=== PATIENT | female | born 1960 | race American Indian/Alaskan Native ===

== ENCOUNTER 2017-05-12 19:06 | Observation (INO) | payer MEDICARE, OTHER ==
[2017-05-12 19:12] VITALS: BMI 50.1
[2017-05-12] MEDS ORDERED: Albuterol-Ipratrop 3 mg / 0.5 (3 ml) UD IH STA ×2 (19:35→21:05)
--- NOTE | 2017-05-12 19:35 | ED PDOC ---
Arrival/HPI - General Chief Complaint: Cough, Cold, Congestion Time Seen by Provider: 05/12/17 19:20 Historian: Patient - History of Present Illness Narrative History of Present Illness (Text): 05/12/17 19:35 A 57 year old female, whose past medical history includes COPD, diabetes and hypertension, presents to the emergency department complaining of 6 days history of productive cough with green sputum. Patient also reports shortness of breath, fever and chills. Denies any chest pain, abdominal pain, nausea, vomiting, diarrhea or any other complaints at this time. Time/Duration: Other (6 days) Symptom Onset: Sudden Symptom Course: Unchanged Activities at Onset: Rest Context: Home Past Medical History - Provider Review Nursing Documentation Reviewed: Yes - Infectious Disease Hx of Infectious Diseases: None - Reproductive Menopause: Yes - Cardiac Hx Hypertension: Yes Hx Pacemaker: No - Pulmonary Hx Bronchitis: Yes Hx Chronic Obstructive Pulmonary Disease (COPD): Yes - Neurological Hx Paralysis: No - Endocrine/Metabolic Hx Diabetes Mellitus Type 2: Yes - Hematological/Oncological Hx Blood Transfusions: No Hx Blood Transfusion Reaction: No - Musculoskeletal/Rheumatological Hx Musculoskeletal Disorders: Yes - Psychiatric Hx Substance Use: No - Surgical History Other/Comment: lap band 2014 - Anesthesia Hx Anesthesia Reactions: Yes ("I GET VERY ANXIOUS BEFORE I GO UNDER & NEED TO SIT UP'") Hx Malignant Hyperthermia: No - Suicidal Assessment Feels Threatened In Home Enviroment: No Family/Social History - Physician Review Nursing Documentation Reviewed: Yes Family/Social History: No Known Family HX Smoking Status: Former Smoker Hx Alcohol Use: No Hx Substance Use: No Allergies/Home Meds Allergies/Adverse Reactions: Allergies No Known Allergies Allergy (Verified 01/20/16 10:44) Home Medications: Home Meds Medication Instructions Recorded Confirmed Losartan/Hydrochlorothiazide 1 tab PO DAILY 01/20/16 05/12/17 [Losartan-Hctz 100-25 mg Tab] amLODIPine [Norvasc] 10 mg PO DAILY 01/20/16 05/12/17 metFORMIN [glucOPHAGE] 500 mg PO BID 01/20/16 05/12/17 Gabapentin [Neurontin] 400 mg PO TID 01/25/16 05/12/17 Review of Systems - Physician Review All systems were reviewed & negative as marked: Yes - Review of Systems Constitutional: Fevers, Other (chills) Respiratory: SOB, Cough Cardiovascular: absent: Chest Pain Gastrointestinal: absent: Abdominal Pain, Diarrhea, Nausea, Vomiting Physical Exam Vital Signs Reviewed: Yes Vital Signs Temp Pulse Resp BP Pulse Ox 05/12/17 23:32 73 18 126/78 92 L 05/12/17 19:07 98.5 F 83 20 117/81 92 L Temperature: Afebrile Blood Pressure: Normal Pulse: Regular Respiratory Rate: Normal Appearance: Positive for: Non-Toxic, Comfortable, Other (obese) Pain Distress: None Mental Status: Positive for: Alert and Oriented X 3 - Systems Exam Head: Present: Atraumatic, Normocephalic Pupils: Present: PERRL Extroacular Muscles: Present: EOMI Conjunctiva: Present: Normal Mouth: Present: Moist Mucous Membranes Neck: Present: Normal Range of Motion Respiratory/Chest: Present: Rhonchi (bilateral). No: Respiratory Distress, Accessory Muscle Use Cardiovascular: Present: Regular Rate and Rhythm, Normal S1, S2. No: Murmurs Abdomen: Present: Normal Bowel Sounds. No: Tenderness, Distention, Peritoneal Signs Back: Present: Normal Inspection Upper Extremity: Present: Normal Inspection. No: Cyanosis, Edema Lower Extremity: Present: Normal Inspection. No: Edema Neurological: Present: GCS=15, CN II-XII Intact, Speech Normal Skin: Present: Warm, Dry, Normal Color. No: Rashes Psychiatric: Present: Alert, Oriented x 3, Normal Insight, Normal Concentration Medical Decision Making ED Course and Treatment: 05/12/17 19:34 Impression: A 57 year old female with cough, shortness of breath, fever and chills. Differential Diagnosis included but are not limited to: pneumonia vs. bronchitis vs. COPD exacerbation Plan: -- EKG -- chest xray -- labs -- Reassess and disposition Progress Notes: 05/12/17 19:52 EKG: Ordered, reviewed, and independently interpreted the EKG. Rate : 77 BPM Rhythm : NSR Interpretation : normal intervals, normal axis XR Chest, 1 View FINDINGS: LIMITATIONS: Exam is limited by the patient's body habitus. LUNGS: Hazy density projected over the lower lungs bilaterally, which is symmetric in appearance, and is felt to be related to overlying soft tissues. Lungs otherwise appear grossly clear, without definite focal consolidation or evidence of pulmonary edema. PLEURAL SPACE: No pneumothorax or pleural effusions seen. HEART: Heart appears mildly enlarged. MEDIASTINUM: 2.2 cm round density with well-defined margins in the right cardiophrenic angle region. BONES/JOINTS: Degenerative changes of the spine incidentally noted. IMPRESSION: - Mild cardiomegaly. - 2.2 cm round density in the right cardiophrenic angle region. This could represent a prominent epicardial fat (a normal variant), or a small cardiophrenic angle mass , such as a pericardial cyst. This finding could be further evaluated with a followup CT chest, not necessarily on an emergent basis. - See above for remaining findings. Dictated and Authenticated by: Alessandra Verdugo MD 05/12/2017 9:11 PM Eastern Time ([place] & [place]) 05/12/17 23:[address] Bernal, who is aware and agrees with plan. Accepts pt in to his service. Pt will go to Telemetry observation for COPD exacerbation. Requests Dr. Mcfarlane and Dr. Gordon on consult. - Lab Interpretations Lab Results: 05/12/17 19:50 05/12/17 20:50 Lab Results 05/12/17 20:50: Sodium 141, Potassium 3.8, Chloride 99, Carbon Dioxide 35 H, Anion Gap 11, BUN 21, Creatinine 0.8, Est GFR ( Amer) > 60, Est GFR (Non- Af Amer) > 60, Random Glucose 109, Calcium 9.5, Total Bilirubin 0.7, AST 60 H, ALT 73 H, Alkaline Phosphatase 155 H, Lactate Dehydrogenase 637, Total Creatine Kinase 218, Troponin I < 0.01, NT-Pro-B Natriuret Pep 41.8, Total Protein 8.8 H , Albumin 4.3, Globulin 4.5, Albumin/Globulin Ratio 1.0 L 05/12/17 19:50: WBC 7.3, RBC 3.91, Hgb 11.8 L, Hct 37.4, MCV 95.7, MCH 30.2, MCHC 31.6, RDW 14.2, Plt Count 474 H, MPV 9.5 05/12/17 19:50: PT 11.1, INR 1.02, APTT 31.3 I have reviewed the lab results: Yes - RAD Interpretation Radiology Orders: 05/12/17 19:31 CHEST PORTABLE [RAD] Stat Arbitrator: Radiologist - EKG Interpretation Interpreted by ED Physician: Yes Type: 12 lead EKG - Medication Orders Current Medication Orders: Albuterol/Ipratropium (Duoneb 3 Mg/0.5 Mg (3 Ml) Ud) 3 ml IH Q4H PRN PRN Reason: Shortness of Breath Last Admin: 05/13/17 03:30 Dose: 3 ml Discontinued Medications Albuterol/Ipratropium (Duoneb 3 Mg/0.5 Mg (3 Ml) Ud) 3 ml IH ONCE STA Stop: 05/12/17 19:36 Last Admin: 05/12/17 20:27 Dose: 3 ml Albuterol/Ipratropium (Duoneb 3 Mg/0.5 Mg (3 Ml) Ud) 3 ml IH ONCE STA Stop: 05/12/17 21:06 Last Admin: 05/12/17 22:24 Dose: 3 ml Ceftriaxone Sodium (Rocephin 1 Gram Ivpb) 1 gm in 100 mls @ 200 mls/hr IV ONCE STA PRN Reason: Protocol Stop: 05/12/17 21:59 Last Admin: 05/12/17 22:24 Dose: 200 mls/hr eMAR Start Stop Document 05/12/17 22:24 EQ (Rec: 05/12/17 22:24 EQ [id number]) Intravenous Solution Start Date 05/12/17 Start Time 22:24 Azithromycin (Zithromax 500mg In Ns) 500 mg in 250 mls @ 166.667 mls/hr IV STAT STA PRN Reason: Protocol Stop: 05/12/17 22:59 Last Admin: 05/12/17 23:30 Dose: 166.667 mls/hr eMAR Start Stop Document 05/12/17 23:30 EQ (Rec: 05/12/17 23:30 EQ [id number]) Intravenous Solution Start Date 05/12/17 Start Time 23:30 Methylprednisolone (Solu-Medrol) 125 mg IVP ONCE ONE Stop: 05/12/17 19:36 Last Admin: 05/12/17 20:27 Dose: 125 mg IVP Administration Document 05/12/17 20:27 EQ (Rec: 05/12/17 20:27 EQ [id number]) Charges for Administration # of IVP Administrations 1 - Scribe Statement The provider has reviewed the documentation as recorded by the Scribe Belqes Richard Provider Scribe Attestation: All medical record entries made by the Scribe were at my direction and personally dictated by me. I have reviewed the chart and agree that the record accurately reflects my personal performance of the history, physical exam, medical decision making, and the department course for this patient. I have also personally directed, reviewed, and agree with the discharge instructions and disposition. Disposition/Present on Arrival - Present on Arrival Any Indicators Present on Arrival: No History of DVT/PE: No History of Uncontrolled Diabetes: Yes Urinary Catheter: No History of Decub. Ulcer: No History Surgical Site Infection Following: None - Disposition Have Diagnosis and Disposition been Completed?: Yes Diagnosis: COPD exacerbation Disposition: HOSPITALIZED Disposition Time: 22:39 Patient Plan: Observation Patient Problems: Current Active Problems Problem Status Onset COPD exacerbation Acute Condition: STABLE
[2017-05-12 20:15] LABS: HEMATOCRIT 37.4 % (36.0-48.0); MEAN CELL VOLUME 95.7 fl (80.0-105.0); MEAN CORPUSCULAR HEMOGLOBIN 30.2 pg (25.0-35.0); MEAN CORPUSCULAR HGB CONC 31.6 g/dl (31.0-37.0); MEAN PLATELET VOLUME 9.5 fl (7.0-11.0); RED CELL DISTRIBUTION WIDTH 14.2 % (11.5-14.5); WHITE BLOOD COUNT 7.3 10^3/ul (4.5-11.0)
[2017-05-12 20:33] LABS: INR 1.02 (0.93-1.08); PARTIAL THROMBOPLASTIN TIME 31.3 Seconds (25.1-36.5)
--- NOTE | 2017-05-12 21:12 | RAD ---
EXAM: XR Chest, 1 View EXAM DATE/TIME: 05/12/2017 7:31 PM CLINICAL HISTORY: 57 years old, female; Signs and symptoms; Cough and shortness of breath; Symptoms not specified; Additional info: SOB TECHNIQUE: Frontal view of the chest. COMPARISON: No relevant prior studies available. FINDINGS: LIMITATIONS: Exam is limited by the patient's body habitus. LUNGS: Hazy density projected over the lower lungs bilaterally, which is symmetric in appearance, and is felt to be related to overlying soft tissues. Lungs otherwise appear grossly clear, without definite focal consolidation or evidence of pulmonary edema. PLEURAL SPACE: No pneumothorax or pleural effusions seen. HEART: Heart appears mildly enlarged. MEDIASTINUM: 2.2 cm round density with well-defined margins in the right cardiophrenic angle region. BONES/JOINTS: Degenerative changes of the spine incidentally noted. IMPRESSION: - Mild cardiomegaly. - 2.2 cm round density in the right cardiophrenic angle region. This could represent a prominent epicardial fat (a normal variant), or a small cardiophrenic angle mass, such as a pericardial cyst. This finding could be further evaluated with a followup CT chest, not necessarily on an emergent basis. - See above for remaining findings.
[2017-05-12] MEDS ORDERED: Azithromycin 500MG/NS 250ml 500 MG/250 ML BAG IV STA (21:30)
[2017-05-12] MEDS ORDERED: cefTRIAXone 1 gm 1 GM/100 ML BAG IV STA (21:30)
[2017-05-12 22:26] LABS: POTASSIUM 3.8 mmol/L (3.6-5.0); SODIUM 141 mmol/L (132-148)
[2017-05-12 22:27] LABS: ALKALINE PHOSPHATASE 155 U/L (38-126); ALT/SGPT 73 U/L (7-56); AST/SGOT 60 U/L (14-36); BILIRUBIN,TOTAL 0.7 mg/dL (0.2-1.3); CALCIUM 9.5 mg/dL (8.4-10.5); TOTAL PROTEIN 8.8 g/dL (5.8-8.3)
[2017-05-12 22:28] LABS: TROPONIN I < 0.01 ng/mL
[2017-05-12] MEDS ORDERED: Albuterol-Ipratrop 3 mg / 0.5 (3 ml) UD IH PRN (22:41)
[2017-05-13 00:02] VITALS: RESP 20
[2017-05-13 01:23] LABS: BLOOD UREA NITROGEN 21 mg/dL (7-21); CARBON DIOXIDE 35 mmol/L (21-33); CHLORIDE 99 mmol/L (98-107); GFR AFRICAN-AMERICAN > 60; GLUCOSE,RANDOM 109 mg/dL (70-110)
--- NOTE | 2017-05-13 02:39 | CP.PCM.PN ---
Subjective - Date & Time of Evaluation Date of Evaluation: 05/13/17 Time of Evaluation: 02:38 - Subjective Subjective: S:Patient requested to be on CPAP.. States she is on CPAP at home for obstructive sleep apnea. Does not know exact setting. Has no other complaints. Medical record was reviewed. O: Last Vital Signs 3 Temp 98.2 F 05/13/17 00:00 Pulse 91 H 05/13/17 02:00 Resp 20 05/13/17 00:00 BP 112/69 05/13/17 00:00 Pulse Ox 98 05/13/17 00:00 Alert, awake. Obese. Not in distress. LUNGS: Normal breathing pattern. A:CA. Obesity. P: CPAP as per order for tonight. Objective - Vital Signs/Intake and Output Vital Signs (last 24 hours): Temp Pulse Resp BP Pulse Ox 98.5 F 73 20 126/78 92 L 05/12/17 19:07 05/12/17 23:32 05/12/17 23:49 05/12/17 23:32 05/12/17 23:32 - Medications Medications: Current Medications Albuterol/Ipratropium (Duoneb 3 Mg/0.5 Mg (3 Ml) Ud) 3 ml IH Q4H PRN PRN Reason: Shortness of Breath - Labs Labs: PT 11.1 SECONDS (9.4-12.5) 05/12/17 19:50 INR 1.02 (0.93-1.08) 05/12/17 19:50 APTT 31.3 Seconds (25.1-36.5) 05/12/17 19:50
[2017-05-13] MEDS ORDERED: Albuterol-Ipratrop 3 mg / 0.5 (3 ml) UD IH PRN (07:06)
[2017-05-13] MEDS: Budesonide 0.5 mg/2 ml Inhal Susp UD IH SCH ×2 (07:57→19:29)
[2017-05-13] MEDS: Albuterol-Ipratrop 3 mg / 0.5 (3 ml) UD IH SCH ×4 (07:57→19:29)
[2017-05-13] MEDS ORDERED: Non Formulary Medication (Losartan/Hydrochlorothiazide [Losartan-Hctz 100-25 Mg Tab] 1 TAB PO SCH (10:00)
--- NOTE | 2017-05-13 11:03 | RAD ---
HISTORY: follow up COMPARISON: Comparison is made to 05/12/2017 TECHNIQUE: Chest PA and lateral FINDINGS: LUNGS: No significant interval change in the lungs noted since the previous exam. No evidence of focal infiltrate or consolidation in the lungs. Possible mild pulmonary vascular congestion. PLEURA: No significant pleural effusion identified. No pneumothorax apparent. CARDIOVASCULAR: The cardiac silhouette is mildly enlarged. OSSEOUS STRUCTURES: No significant abnormalities. VISUALIZED UPPER ABDOMEN: Normal. OTHER FINDINGS: None. IMPRESSION: Mild cardiomegaly. Mild pulmonary vascular congestion.
--- NOTE | 2017-05-13 11:16 | CT ---
PROCEDURE: CT Chest without contrast HISTORY: mass COMPARISON: Chest radiograph 05/12/2017. TECHNIQUE: Contiguous axial images were obtained through the chest without intravenous contrast enhancement. Sagittal and coronal reconstructions were performed. Radiation dose (DLP): 1286.02 mGy-cm. This CT exam was performed using one or more of the following dose reduction techniques: Automated exposure control, adjustment of the mA and/or kV according to patient size, and/or use of iterative reconstruction technique. FINDINGS: LUNGS: Mild bullous changes are identified in the bilateral apices and minimal at the inferior lungs bilaterally as well. No infiltrate is identified in the central airways are clear. MEDIASTINUM: The medial, bilobed right epicardial density seen the prior chest radiograph 05/12/2017 there is represented by a 2.2 x 4.8 cm mildly complex cyst measuring of variable Hounsfield unit density as low was -12.2 and as high as 0.4. This may represent a benign epicardial/ pericardial cyst, but is nonspecific appearing particularly without contrast. No significant lymphadenopathy. Cardiomegaly appears mild. No pericardial effusion. The thoracic aorta measures 4.0 cm at the proximal ascending segment and only 2.8 cm at the root representing a mild aneurysm of the arch terminating at the anterior arch which measures 3.[address] or caliber persists through the descending segment and diaphragmatic hiatus. Patient is status post lap band procedure. BONES: No fracture. No destructive lesion. UPPER ABDOMEN: Patient is status post lap band procedure. Cholelithiasis also partially captured in this exam. OTHER FINDINGS: None. IMPRESSION: 1. A 4.8 cm complex cysts identified at the right epicardial region there is likely benign. Given complexity, follow-up chest CT is advised in 3 months to demonstrate stability of this finding. 2. Limited pulmonary emphysema bilaterally. No definitive pulmonary mass. No significant lymphadenopathy. No acute pulmonary findings. 3. A mild ascending thoracic aortic aneurysm terminates proximal to the anterior arch measuring 4.0 cm greatest dimension with normal caliber aortic root. 4. Incidental prior lap band procedure. Cholelithiasis partially captured in this exam.
[2017-05-13] MEDS: MethylPREDNISolone 40 mg Vial IVP SCH ×2 (12:08→22:55)
[2017-05-13] MEDS: levoFLOXacin 500 MG TAB PO SCH (12:08)
--- NOTE | 2017-05-13 15:11 | CON ---
DATE: 05/13/2017 REQUESTING PHYSICIAN: Manjeet Bernal DO REASON FOR CONSULTATION: I have been asked to see this 57-year-old female with a history of COPD, morbid obesity, hypertension, and diabetes mellitus, who comes to the hospital with 6 days of cough with greenish sputum, associated with some shortness of breath. The patient also experienced fevers and chills. Routine blood work shows elevated liver enzymes for which I have been asked to see this patient. The patient currently denies any abdominal pain, nausea, vomiting, hematemesis or rectal bleeding. PAST MEDICAL HISTORY: Notable for COPD, hypertension, diabetes mellitus, and morbid obesity. PAST SURGICAL HISTORY: Notable for lap band placement in 2013. SOCIAL HISTORY: The patient quit cigarette smoking several years ago. She denies alcohol use. FAMILY HISTORY: Noncontributory. REVIEW OF SYSTEMS: A 14-point review of systems is notable for shortness of breath and cough, productive of greenish sputum. PHYSICAL EXAMINATION: GENERAL: Obese female lying in bed in no acute distress. VITAL SIGNS: The patient weighs 284 pounds with BMI of 50.1. Vital signs reveal temperature of 97.9, blood pressure of 118/71, and heart rate of 85. HEENT: Reveal sclerae to be white. Conjunctivae pink. NECK: Supple. CHEST: Reveal scattered rhonchi. HEART: Exam reveals regular rate and rhythm. ABDOMEN: Obese and soft. She has a palpable lap band port in the right mid abdomen. EXTREMITIES: Show no edema. LABORATORY DATA: Reveal white blood cell count of 7.3 and hemoglobin of 11.8. Chemistries reveal bicarb of 35, AST of 60, ALT of 73, and alkaline phosphatase of 155. HOME MEDICATIONS: Include metformin, Norvasc, losartan,and gabapentin. CURRENT MEDICATIONS: Include losartan, albuterol, ipratropium, metformin, hydrochlorothiazide, Levaquin, gabapentin, Norvasc, budesonide, and methylprednisolone. IMPRESSION: A 57-year-old female admitted to the hospital with shortness of breath and cough, productive of greenish sputum. CT scan of the chest shows chronic obstructive pulmonary disease and a right pericardial complex cyst. This appears to be chronic. Her elevated liver enzymes are most likely secondary to fatty liver. The patient is morbidly obese. RECOMMENDATIONS: 1. Check hepatitis serology. 2. Follow liver enzymes. 3. We will request ultrasound of the abdomen. Deandre Troy MD
--- NOTE | 2017-05-13 15:29 | US ---
HISTORY: elevated LFT's COMPARISON: None. TECHNIQUE: Sonographic evaluation of the right upper quadrant of the abdomen. FINDINGS: LIVER: Measures 16.2 cm in length. Normal echogenicity of the liver parenchyma. No mass. No intrahepatic bile duct dilatation. GALLBLADDER: Gallbladder is low partially contracted with cholelithiasis at the mid to distal fundus. No pericholecystic fluid collection or gross mural thickening appreciated. Normal caliber CBD. COMMON BILE DUCT: Measures 5.4 mm. No stones. No dilatation. PANCREAS: Unremarkable as visualized. No mass. No ductal dilatation. RIGHT KIDNEY: Measures 10.2 cm in length. Normal echogenicity. No calculus, mass, or hydronephrosis. Views of the left kidney are incidentally unremarkable. AORTA: No aneurysmal dilatation. IVC: Unremarkable. OTHER FINDINGS: None . IMPRESSION: 1. No definitive hepatic mass or prominent biliary tree dilatation is appreciable. 2. Cholelithiasis within a partially contracted gallbladder. Normal caliber CBD. 3. Remainder of the examination appears unremarkable grossly.
--- NOTE | 2017-05-13 15:44 | CON ---
PULMONARY CONSULTATION DATE: 05/13/2017 REFERRING PHYSICIAN: Manjeet Bernal DO REASON FOR CONSULTATION: Chronic obstructive pulmonary disease. HISTORY OF PRESENT ILLNESS: The patient is a 57-year-old female, with past medical history significant for chronic obstructive pulmonary disease, obstructive sleep apnea, diabetes mellitus, hypertension, who presents to [facility] with a 6-day history of worsening shortness of breath at rest, dyspnea on exertion, cough, and sputum production. There is no history of chest pain, coughing up of blood, or chest pain - made worse with deep respirations. There is no history of temperatures, chills or infectious exposure. There is no history of night sweats, weight loss or appetite change prior to the above events. No history of leg or calf pains. No history of syncope or diaphoresis. No history of recent travel or trauma. REVIEW OF SYSTEMS: No history of nausea, vomiting or diarrhea. No acute urinary symptoms. No new neurologic or musculoskeletal complaints. Rest of the review of systems is negative. ALLERGIES: NO KNOWN ALLERGIES. SOCIAL HISTORY: History is positive for tobacco and negative for alcohol. FAMILY HISTORY: No inheritable diseases. HOME MEDICATION: Listed: Glucophage, Norvasc, losartan - hydrochlorothiazide and Neurontin. PHYSICAL EXAMINATION GENERAL: The patient is not short of breath at rest. She is not using accessory muscles for breathing. VITAL SIGNS: Temperature is 97.9, pulse 87, respirations 18/20, blood pressure 118/71. Oxygen saturation on BiPAP is 100%. Oxygen saturation on nasal cannula is 98%. HEENT: Normocephalic, atraumatic. No JVD. CARDIOVASCULAR: Positive S1, S2. No S3 gallop. LUNGS: Decreased breath sounds at the bases. Mild rhonchi and wheezing are heard bilaterally. EXTREMITIES: Mild edema. No cyanosis, no clubbing. Calves are nontender to palpation. GI: Abdomen is soft, nontender and nondistended. Bowel sounds are positive. SKIN: No acute rash. NEUROLOGIC: Exam limited at the present time. PERTINENT LABORATORY DATA: Chest x-ray was done as a portable exam. There is a rounded density in the right cardiophrenic angle consistent with either a prominent epicardial fat pad or possibly a pericardial cyst. CBC: White count 7.3, hemoglobin 11.8, hematocrit 37.4, platelets of 474. Complete metabolic profile: Carbon dioxide 35, AST 60, ALT 73, alkaline phosphatase 155, total protein 8.8. Rest of the metabolic profile is within normal limits. IMPRESSION: 1. Acute bronchitis. 2. Chronic obstructive pulmonary disease. 3. Obstructive sleep apnea. 4. Mild anemia. PLAN: The patient presents to [facility] with a 6-day history of worsening pulmonary symptoms. The patient is followed closely by a private Health Care Attorney - Dr. Foster. She does follow with him frequently. I did review the chest x-ray as above. There is a small rounded density in the right cardiophrenic angle - either representing a prominent pericardial fat pad or possibly a pericardial cyst. I will proceed with a two-view chest x-ray - for better delineation. On physical exam, the patient is in [id number] bronchospasm. I will start the patient on nebulizer treatments, inhaled Pulmicort and low-dose intravenous steroids this morning. Given her above age and history, I will also start the patient on oral antibiotic therapy. There are no temperatures noted. There is no leukocytosis. In addition, there is no significant alveolar-arterial gradient. The patient does feel much better this morning - compared to the past few days. She is clinically improved. Additional pulmonary intervention will be based on the above results, as well as the clinical status of the patient. I will discuss the above with Dr. Bernal later this morning. Thank you very much for this pulmonary consultation. Lex Gordon MD [facility]
--- NOTE | 2017-05-13 16:43 | HP ---
HISTORY OF PRESENT ILLNESS: She came into the emergency room last night with a 6-day history of productive cough of green sputum, shortness of breath, fever, chills, not feeling well, and got worse, so she came to the emergency room. PAST MEDICAL HISTORY: COPD, diabetes, and hypertension. She was given some steroids in the ER and oxygen, got little bit better, but not enough. She has bronchitis, history of COPD, hypertension, type 2 diabetes, she has musculoskeletal disorders, she had back pain and surgery, she is very nervous. FAMILY HISTORY: No known family history. SOCIAL HISTORY: Former smoker. No alcohol. No drugs. ALLERGIES: NO KNOWN DRUG ALLERGIES. MEDICATIONS: She takes losartan, hydrochlorothiazide, Norvasc, Glucophage, and Neurontin. REVIEW OF SYSTEMS: No acute vision changes or hearing changes. No sore throat. No neck pain. No chest pain. There is shortness of breath and coughing. No abdominal pain, diarrhea, nausea or vomiting. No extremity pain. She is able to walk. PHYSICAL EXAMINATION VITAL SIGNS: She has 98.5 temperature, 83 pulse, 20 respiratory rate, 117/81 blood pressure, and 92% O2 sat. HEENT: Head is atraumatic, normocephalic. Throat is moist. NECK: Supple. HEART: Regular rate. LUNGS: Decreased breath sounds bilaterally. There is rhonchi bilaterally. ABDOMEN: Soft and nontender. Positive bowel sounds. Morbidly obese. No guarding. No rebound. No CVA tenderness. EXTREMITIES: +1 pitting edema bilaterally. NEUROLOGIC: GCS is 15. Cranial nerves II through XII grossly intact. Normal speech. Thyroid is midline. No palpable appreciable lymphadenopathy. Alert and oriented x3. LABORATORY DATA: She had multiple tests done. She had a chest x-ray,which showed mild cardiomegaly 2.2 cm round density in the right cardiophrenic angle region, this could represent a prominent epicardial fat or a small cardiophrenic angle mass such as pericardial cyst. The findings could be further evaluated with a CAT scan. I will order a CAT scan. She had blood test, 141 sodium, potassium is 3.8, BUN 21, creatinine 0.8, GFR is greater than 60, sugar is 109, calcium is 9.5, and total bilirubin is 0.7. AST is 60, ALT is 73, and alkaline phosphatase of 155, elevated. Lactate dehydrogenase is 637. Total creatine kinase is 2.8. Troponin I is less than 0.01. BNP is 41.8. Total protein is 8.8, albumin is 4.3, and globulin is 4.5. IMPRESSION: She is going to have a consult with Cardiology, Pulmonary, and GI. She needed a breathing treatment last night emergently. We will be checking her labs. She is currently on observation status. I am going to keep her on observation on telemetry for the time being. Hopefully, tomorrow if things go well, I might be able to discharge her, if not I will make her inpatient tomorrow. She is here for acute chronic obstructive pulmonary disease, chest mass, and high elevated LFTs. She is morbidly obese, shortness of breath, diabetes, and hypertension. Manjeet Bernal DO
[2017-05-13 18:28] VITALS: TEMP 98.6; O2SAT 97
--- NOTE | 2017-05-13 23:39 | CARD ---
APPROVED REPORT EKG Measurement Heart [id number] <Conclusion> Normal sinus rhythm Normal ECG
[2017-05-14] MEDS: Albuterol-Ipratrop 3 mg / 0.5 (3 ml) UD IH SCH ×2 (01:38→07:16)
[2017-05-14 06:30] VITALS: PULSE 76
[2017-05-14] MEDS: Budesonide 0.5 mg/2 ml Inhal Susp UD IH SCH (07:16)
--- NOTE | 2017-05-14 07:59 | PN ---
SUBJECTIVE: The patient appears very comfortable this morning. She is not short of breath at rest. PHYSICAL EXAMINATION: VITAL SIGNS: (Last noted in the computer): Temperature is 98.6, pulse is 76, respirations 18, blood pressure 143/79. Oxygen saturation on room air is 97%. HEENT: Normocephalic, atraumatic. NECK: No JVD. CARDIOVASCULAR: Positive S1, S2. No S3 gallop. LUNGS: Improved breath sounds at the bases. Much less/minimal rhonchi. No wheezing this morning. EXTREMITIES: Mild edema. No cyanosis, no clubbing. Calves are nontender to palpation. GASTROINTESTINAL: Abdomen is soft, nontender and nondistended. Bowel sounds are positive. SKIN: No acute rash. NEUROLOGIC: Limited at the present time. PERTINENT LABORATORY DATA: CAT scan of the chest was done yesterday and reviewed. There is a medial, bilobed right epicardial density noted-consistent with an epicardial cyst. There is no pulmonary mass or consolidation noted. There is no significant lymphadenopathy. There are no acute pulmonary findings. IMPRESSION: 1. Acute bronchitis. 2. Chronic obstructive pulmonary disease. 3. Obstructive sleep apnea. 4. Mild anemia. PLAN: The patient appears very comfortable this morning. She is not short of breath at rest. She does state to feeling much, much better overall. I did review the CAT scan of the chest-as above. There are no acute pulmonary findings noted. On physical exam, her bronchospasm continues to resolve. In addition, the oxygen saturation on room air is now 97%. I will continue the current nebulizer treatments and change to oral steroids this morning. The patient also remains on antibiotic therapy. There are no temperatures noted. There is no leukocytosis. The clinical status of the patient is significantly improved. As mentioned in yesterday's consult, the patient does follow with a private office agent, (Dr. Foster). She did ask me for my card/information for a followup appointment with me. I will leave the final decision up to her, but would be happy to see her in the office. Again, the clinical status of the patient is significantly improved-compared to the initial presentation. I will discuss the above with Dr. Bernal. Lex Karpman, MD [facility] # [id number] ROGER
--- NOTE | 2017-05-14 09:04 | CON ---
CARDIOLOGY CONSULTATION DATE: 05/13/2017 REASON FOR CONSULTATION: Shortness of breath and right heart failure. HISTORY OF PRESENT ILLNESS: The patient is a 57-year-old moderately obese female who has a history of sleep apnea, on BiPAP; history of chronic obstructive lung disease, on nasal O2 at home, she presented because of shortness of breath as well as leg swelling. The patient is also experiencing productive cough of greenish sputum for the past 6 days. She denies any fever or chills. The patient denies any retrosternal chest pain and is unaware of any history of heart attack in the past. SOCIAL HISTORY: The patient is nonsmoker. MEDICATIONS: Cozaar 100 mg once a day, albuterol inhaler q.2 hours p.r.n., Glucophage 500 mg twice a day, hydrochlorothiazide 25 mg once a day, Levaquin 500 mg daily, Neurontin 400 mg t.i.d., Norvasc 10 mg once a day, Solu-Medrol q.12 hours, and Pulmicort Respules 0.5 mg inhalation q.12 hours. REVIEW OF SYSTEMS: No nausea or vomiting. No dizziness or syncope. PAST MEDICAL HISTORY: Hypertension, diabetes mellitus, chronic obstructive lung disease, and sleep apnea. PHYSICAL EXAMINATION: GENERAL: The patient is a middle-aged female, who does not appear to be in acute distress. VITAL SIGNS: Blood pressure 126/81, heart rate 87, temperature 97.9, and respirations 20. HEENT: Normocephalic. CHEST: Scattered bilateral rhonchi. HEART: S1 and S2 regular and distant. ABDOMEN: Soft. EXTREMITIES: 1+ pitting edema. LABORATORY DATA: Hemoglobin and hematocrit 11.8 and 37.4, white count and platelet count are within normal limits. PT, PTT, INR are within normal limits. SMA-7 is within normal limits except for carbon dioxide of 35. One set of troponin is negative. AST and ALT are 60 and 73 respectively. Alkaline phosphatase is elevated at 155. IMAGING STUDIES: EKG revealed normal sinus rhythm at a rate of 77. Chest CT scan without contrast revealed 4.8 cm complex cyst in the right epicardial region, likely benign. Followup CT scan is advised in 3 months. Limited pulmonary emphysema bilaterally. No definite pulmonary mass. Mild ascending thoracic aortic aneurysm proximal to the anterior arch measuring 4 cm in greatest dimension with normal caliber aortic root. Cholelithiasis was partially captured. Chest x-ray for technical reason could not be opened from either [employer] or [employer] database; however, official report mild cardiomegaly, 2.2 cm round density in the right cardiophrenic angle, this could represent prominent epicardial fat or small cardiophrenic angle mass such as pericardial cyst. ASSESSMENT: 1. Exacerbation of chronic obstructive lung disease. 2. Consider right-sided heart failure. 3. A 4.8 cm complex cyst in the right epicardial region. RECOMMENDATIONS: Continue current Cozaar 100 mg once a day, albuterol inhaler, hydrochlorothiazide 25 mg once a day, Levaquin 500 mg daily, Norvasc 10 mg once a day, Solu-Medrol twice a day. Obtain transthoracic echocardiographic study. Phil Oakes MD [facility]
[2017-05-14] MEDS: levoFLOXacin 500 MG TAB PO SCH (09:35)
[2017-05-14 09:38] VITALS: BP 115/67
--- NOTE | 2017-05-14 16:47 | DS ---
She is very well here. She is going to be discharged today. She spent 2 days in observation. She had some IV Solu-Medrol. She improved with her medications. She was on some antibiotics. She also had Dr. Bird, store detective, evaluated her elevated liver enzymes with abdominal ultrasound. She had a CAT scan of the chest. She was worked up by pulmonology. She is comfortable, breathing well, smiling, happy in bed, ready to go home. PHYSICAL EXAMINATION: VITAL SIGNS: She has 98.6 temp, 87 pulse, 143/79 blood pressure, 20 respiratory rate, 97% O2 sat. HEAD: Atraumatic, normocephalic. THROAT: Moist. NECK: Supple. HEART: Regular rate. LUNGS: Decreased breath sounds and clear to auscultation. ABDOMEN: Soft, obese, nontender, positive bowel sounds. She will be discharged today on Cozaar; DuoNeb; Glucophage; HydroDIURIL; Levaquin; Neurontin; Norvasc; prednisone 40 for 3 days, 30 for 3 days, 20 for 3 days, 10 for 3 days and stop; Pulmicort. Her labs were good. She will be followed up on the outpatient with Dr. Bernal next week and Dr. Gordon next week. She will see her for COPD acute exacerbation, chest mass, high LFTs, diabetes, hypertension. Chest CAT scan showed a complex cyst identified at the right epicardial region, it is benign. I am going to recheck it in 3 months and she will be discharged. Manjeet Bernal DO
== END 2017-05-14 10:47 | disposition home or self-care (01) ==
LOC: ED 19:06 → ERH 22:39 → 3RSO 23:40 → 5RSO 05-13 17:16
PROVIDERS: ADMIT Family Medicine; ATTEND Family Medicine
DX: J44.1 Chronic obstructive pulmonary disease with (acute) exacerbation (principal); I11.0 Hypertensive heart disease with heart failure; I50.810 Right heart failure, unspecified; E11.9 Type 2 diabetes mellitus without complications; R22.2 Localized swelling, mass and lump, trunk; J44.0 Chronic obstructive pulmonary disease with (acute) lower respiratory infection; J20.9 Acute bronchitis, unspecified; E66.01 Morbid (severe) obesity due to excess calories; Z68.43 Body mass index [BMI] 50.0-59.9, adult; K76.0 Fatty (change of) liver, not elsewhere classified; D64.9 Anemia, unspecified; G47.33 Obstructive sleep apnea (adult) (pediatric); Z79.84 Long term (current) use of oral hypoglycemic drugs; Z99.81 Dependence on supplemental oxygen; Z87.891 Personal history of nicotine dependence
CPT/HCPCS: 71010; 71020; 71250; 76705; 80053; 82550; 82948; 83615; 83880; 84484; 85027; 85610; 85730; 93005; 94640; 94660; 94760; 96374; 99285; G0378; J0456; J0696; J2920; J2930

== ENCOUNTER 2017-12-15 17:02 | Emergency (ER) | payer MEDICARE, OTHER ==
[2017-12-15 17:50] VITALS: BMI 47.6
[2017-12-15 17:52] VITALS: TEMP 98.5
--- NOTE | 2017-12-15 18:11 | ED PDOC ---
Arrival/HPI - General Chief Complaint: Lower Extremity Problem/Injury Time Seen by Provider: 12/15/17 17:59 Historian: Patient - History of Present Illness Narrative History of Present Illness (Text): 12/15/17 18:06 57yo female with past medical history of hypertension, diabetes, COPD, who present with complaint of left calf pain x 3weeks. She also report pain on her left 2nd toe nail. States the area was "sore" and she pulled off the cuticle so the pain became worse. She describes pain as crampy and constant. No relieving/ exacerbating factors. Denies chest pain, SOB, diaphoresis, recent surgery/travel , MARTINEZ, nausea, vomiting, fever, redness to toe, trauma, any other complaint. Past Medical History - Provider Review Nursing Documentation Reviewed: Yes - Infectious Disease Hx of Infectious Diseases: None - Cardiac Hx Hypertension: Yes Hx Pacemaker: No - Pulmonary Hx Bronchitis: Yes Hx Chronic Obstructive Pulmonary Disease (COPD): Yes - Neurological Hx Paralysis: No - HEENT Hx HEENT Disorder: No - Endocrine/Metabolic Hx Diabetes Mellitus Type 2: Yes - Hematological/Oncological Hx Blood Transfusions: No Hx Blood Transfusion Reaction: No - Musculoskeletal/Rheumatological Hx Musculoskeletal Disorders: Yes - Psychiatric Hx Emotional Abuse: No Hx Physical Abuse: No Hx Substance Use: No - Surgical History Other/Comment: lap band 2014 - Anesthesia Hx Anesthesia Reactions: Yes ("I GET VERY ANXIOUS BEFORE I GO UNDER & NEED TO SIT UP'") Hx Malignant Hyperthermia: No - Suicidal Assessment Feels Threatened In Home Enviroment: No Family/Social History - Physician Review Nursing Documentation Reviewed: Yes Family/Social History: Unknown Family HX Smoking Status: Former Smoker Hx Alcohol Use: No Hx Substance Use: No Allergies/Home Meds Allergies/Adverse Reactions: Allergies No Known Allergies Allergy (Verified 01/20/16 10:44) Home Medications: Home Meds Medication Instructions Recorded Confirmed Losartan/Hydrochlorothiazide 1 tab PO DAILY 01/20/16 12/15/17 [Losartan-Hctz 100-25 mg Tab] metFORMIN [glucOPHAGE] 500 mg PO BID 01/20/16 12/15/17 Albuterol HFA [Ventolin HFA 90 1 puff INH PRN PRN 12/15/17 12/15/17 mcg/actuation (8 g)] Budesonide [Pulmicort Respules] 1 puff INH DAILY 12/15/17 12/15/17 Formoterol Fumarate [Perforomist] 1 inh NEB DAILY 12/15/17 12/15/17 Tiotropium [place] Inhaler 1 inh PO DAILY 12/15/17 12/15/17 [Spiriva Inhalation Handihaler Device] Review of Systems - Physician Review All systems were reviewed & negative as marked: Yes - Review of Systems Constitutional: Normal Eyes: Normal ENT: Normal Respiratory: Normal Cardiovascular: Normal Gastrointestinal: Normal Genitourinary Female: Normal Musculoskeletal: Arthralgias (Left calf and 2nd toe pain) Skin: Normal Neurological: Normal Endocrine: Normal Hemo/Lymphatic: Normal Psychiatric: Normal Physical Exam Vital Signs Reviewed: Yes Vital Signs Temp Pulse Resp BP Pulse Ox 12/15/17 19:06 76 18 138/97 H 98 12/15/17 17:51 98.5 F 88 16 133/95 H 97 Temperature: Afebrile Blood Pressure: Normal Pulse: Regular Respiratory Rate: Normal Appearance: Positive for: Well-Appearing, Non-Toxic, Comfortable Pain Distress: None Mental Status: Positive for: Alert and Oriented X 3 - Systems Exam Head: Present: Atraumatic, Normocephalic Pupils: Present: PERRL Extroacular Muscles: Present: EOMI Conjunctiva: Present: Normal Mouth: Present: Moist Mucous Membranes Neck: Present: Normal Range of Motion Respiratory/Chest: Present: Clear to Auscultation, Good Air Exchange. No: Respiratory Distress, Accessory Muscle Use Cardiovascular: Present: Regular Rate and Rhythm, Normal S1, S2. No: Murmurs Abdomen: No: Tenderness, Distention, Peritoneal Signs Back: Present: Normal Inspection Upper Extremity: Present: Normal Inspection. No: Cyanosis, Edema Lower Extremity: Present: CALF TENDERNESS (Left calf), NORMAL PULSES, Normal ROM , Tenderness (Left lower leg), Neurovascularly Intact. No: Edema, Forest's Sign , Swelling, Erythema, Deformity, Temperature Abnormalties Neurological: Present: GCS=15, CN II-XII Intact, Speech Normal Skin: Present: Warm, Dry, Normal Color. No: Rashes Psychiatric: Present: Alert, Oriented x 3, Normal Insight, Normal Concentration Medical Decision Making ED Course and Treatment: 12/15/17 19:05 Per US tech Doppler is negative for DVT PT report history of Diabetes. She have no sign of infection/paronychia except tenderness to the area. She will be placed on abx. Ibuprofen given for pain. she was referred to her PMD. - RAD Interpretation Radiology Orders: 12/15/17 18:04 DUPLEX LOWER EXTRM VEIN LEFT [US] Stat - Medication Orders Current Medication Orders: Discontinued Medications Tramadol HCl (Ultram) 50 mg PO STAT STA Stop: 12/15/17 18:06 Last Admin: 12/15/17 19:04 Dose: Not Given Non-Admin Reason: Patient Refused Disposition/Present on Arrival - Present on Arrival Any Indicators Present on Arrival: No History of DVT/PE: No History of Uncontrolled Diabetes: Yes Urinary Catheter: No History of Decub. Ulcer: No History Surgical Site Infection Following: None - Disposition Have Diagnosis and Disposition been Completed?: Yes Diagnosis: Toe pain, Leg pain Disposition: HOME/ ROUTINE Disposition Time: 19:10 Patient Plan: Discharge Condition: STABLE Discharge Instructions (ExitCare): Muscle and Bone Pain (DC) Additional Instructions: Follow up with your doctor Return to emergency department for any new or worsening symptoms Prescriptions: Cephalexin [Keflex] 500 mg PO TID #21 capsule Ibuprofen [Motrin Tab] 600 mg PO Q6 #20 tab Referrals: Natanael Flores DPM [Staff Provider] - Follow up with primary Forms: [address] (Portuguese)
[2017-12-15 19:13] VITALS: BP 138/97; PULSE 76; RESP 18; O2SAT 98
--- NOTE | 2017-12-16 09:23 | US ---
PROCEDURE: Left lower extremity venous US HISTORY: Leg pain and swelling. Evaluate for DVT. PHYSICIAN(S): Wilder Steiner MD. TECHNIQUE: Duplex sonography and color-flow Doppler with graded compression were used to evaluate the deep venous system of the left lower extremity. The exam is very limited by body habitus and edema. FINDINGS: The visualized deep venous system of the left lower extremity is sonographically normal and compressible. Normal wave forms and augmentation are seen. There is no sonographic evidence for deep venous thrombosis in the visualized segments of the left lower extremity. IMPRESSION: 1. No sonographic evidence for deep venous thrombosis in the visualized segments of the left lower extremity. 2. Limited study
== END 2017-12-15 19:21 | disposition home or self-care (01) ==
LOC: ED 17:02
DX: M79.662 Pain in left lower leg (principal); M79.675 Pain in left toe(s); I10 Essential (primary) hypertension; E11.9 Type 2 diabetes mellitus without complications; J44.9 Chronic obstructive pulmonary disease, unspecified; Z87.891 Personal history of nicotine dependence

== ENCOUNTER 2018-02-09 16:11 | Emergency (ER) | payer MEDICARE, OTHER ==
[2018-02-09 16:31] VITALS: BMI 49.6
[2018-02-09 16:39] VITALS: RESP 18; TEMP 98
--- NOTE | 2018-02-09 17:21 | ED PDOC ---
Arrival/HPI - General Chief Complaint: Lower Extremity Problem/Injury Time Seen by Provider: 02/09/18 16:56 Historian: Patient - History of Present Illness Narrative History of Present Illness (Text): 02/09/18 17:03 This 57 yo female with past medical history of hypertension, diabetes, COPD, who present with complaint of left knee pain "for a while". When I asked how long knee pain has been, she stated to "look at my records". She stated she has knee pain and she "just want help" Patient stated pain came suddenly, and knee pain has worsen last 4 days. Patient stated Tramadol works well for her knee pain. Patient showed me an out patient prescription for MRI, which I recommended to have it done as at patient at local imaging center, or radiology , and that she may need to make an appointment to have the MRI. Patient denied fall, trauma, weakness, paresthesias, skin rash, fever, chills, sob, cp, or dizziness Time/Duration: Other (see hpi) Context: Home Past Medical History - Provider Review Nursing Documentation Reviewed: Yes - Infectious Disease Hx of Infectious Diseases: None - Cardiac Hx Hypertension: Yes Hx Pacemaker: No - Pulmonary Hx Bronchitis: Yes Hx Chronic Obstructive Pulmonary Disease (COPD): Yes - Neurological Hx Paralysis: No - HEENT Hx HEENT Disorder: No - Endocrine/Metabolic Hx Diabetes Mellitus Type 2: Yes - Hematological/Oncological Hx Blood Transfusions: No Hx Blood Transfusion Reaction: No - Musculoskeletal/Rheumatological Hx Musculoskeletal Disorders: Yes Other/Comment: neuropathy. L meniscus tear - Gastrointestinal Other/Comment: lapband - Psychiatric Hx Emotional Abuse: No Hx Physical Abuse: No Hx Substance Use: No - Surgical History Other/Comment: lap band 2014 - Anesthesia Hx Anesthesia Reactions: Yes ("I GET VERY ANXIOUS BEFORE I GO UNDER & NEED TO SIT UP'") Hx Malignant Hyperthermia: No - Suicidal Assessment Feels Threatened In Home Enviroment: No Family/Social History - Physician Review Nursing Documentation Reviewed: Yes Family/Social History: Other (noncontributory) Smoking Status: Former Smoker Hx Alcohol Use: No Hx Substance Use: No Allergies/Home Meds Allergies/Adverse Reactions: Allergies No Known Allergies Allergy (Verified 01/20/16 10:44) Home Medications: Home Meds Medication Instructions Recorded Confirmed Losartan/Hydrochlorothiazide 1 tab PO DAILY 01/20/16 02/09/18 [Losartan-Hctz 100-25 mg Tab] metFORMIN [glucOPHAGE] 500 mg PO BID 01/20/16 02/09/18 Albuterol HFA [Ventolin HFA 90 1 puff INH PRN PRN 12/15/17 02/09/18 mcg/actuation (8 g)] Budesonide [Pulmicort Respules] 1 puff INH DAILY 12/15/17 02/09/18 Formoterol Fumarate [Perforomist] 1 inh NEB DAILY 12/15/17 02/09/18 Tiotropium [place] Inhaler 1 inh PO DAILY 12/15/17 02/09/18 [Spiriva Inhalation Handihaler Device] Gabapentin [Neurontin] 1 tab PO BID 02/09/18 02/09/18 Review of Systems - Review of Systems Constitutional: Normal. absent: Fatigue, Weight Change, Fevers Eyes: Normal ENT: Normal Respiratory: Normal Cardiovascular: Normal Gastrointestinal: Normal Genitourinary Female: Normal Musculoskeletal: Other (knee pain) Skin: Normal Neurological: Normal Endocrine: Normal Hemo/Lymphatic: Normal Psychiatric: Normal Physical Exam Vital Signs Temp Pulse Resp BP Pulse Ox 02/09/18 19:22 72 18 138/86 97 02/09/18 16:39 98.0 F 81 18 149/87 95 Temperature: Afebrile Blood Pressure: Normal Pulse: Regular Respiratory Rate: Normal Appearance: Positive for: Well-Appearing, Non-Toxic, Comfortable Pain Distress: None Mental Status: Positive for: Alert and Oriented X 3 - Systems Exam Head: Present: Atraumatic, Normocephalic Pupils: Present: PERRL Extroacular Muscles: Present: EOMI Conjunctiva: Present: Normal Mouth: Present: Moist Mucous Membranes Neck: Present: Normal Range of Motion Respiratory/Chest: Present: Clear to Auscultation, Good Air Exchange. No: Respiratory Distress, Accessory Muscle Use Cardiovascular: Present: Regular Rate and Rhythm, Normal S1, S2. No: Murmurs Abdomen: No: Tenderness, Distention, Peritoneal Signs Back: Present: Normal Inspection Upper Extremity: Present: Normal Inspection. No: Cyanosis, Edema Lower Extremity: Present: Normal Inspection, NORMAL PULSES, Neurovascularly Intact, Capillary Refill < 2 s. No: Edema, CALF TENDERNESS, Cyanosis, Normal ROM (decreased ROM of right knee due to pain), Forest's Sign, Swelling, Erythema , Temperature Abnormalties Neurological: Present: GCS=15, CN II-XII Intact, Speech Normal, Motor Func Grossly Intact, Normal Sensory Function, Normal Cerebellar Funct, Gait Normal, Memory Normal Skin: Present: Warm, Dry, Normal Color. No: Rashes Psychiatric: Present: Alert, Oriented x 3, Normal Insight, Normal Concentration Medical Decision Making ED Course and Treatment: 02/09/18 19:07 Re-evaluation. Patient feels better. Discussed results and plan with patient who expresses understanding. All questions answered and there is agreement with the plan to discharge home with instructions. Patient stable for discharge. Return if symptoms persist or worsen. Re-evaluation Time: 19:07 Reassessment Condition: Re-examined, Improved - RAD Interpretation Narrative RAD Interpretations (Text): 02/09/18 19:08 Knee x-rays: No Fx. (+) moderate DJD. Radiology Orders: 02/09/18 16:58 KNEE WITH PATELLA LEFT 3 VIEW [RAD] Stat - Medication Orders Current Medication Orders: Discontinued Medications Ketorolac Tromethamine (Toradol) 30 mg IM STAT STA Stop: 02/09/18 17:00 Last Admin: 02/09/18 17:45 Dose: 30 mg MAR Pain Assessment Document 02/09/18 17:45 GMD (Rec: 02/09/18 17:46 GMD [id number]) Pain Reassessment Is this a pain reassessment? No IM Administration Charges Document 02/09/18 17:45 GMD (Rec: 02/09/18 17:46 GMD [id number]) Injection Site MAR Injection Site Right Deltoid Charges for Administration # of IM Administrations 1 Tramadol HCl (Ultram) 50 mg PO STAT STA Stop: 02/09/18 17:00 Last Admin: 02/09/18 17:45 Dose: 50 mg MAR Pain Assessment Document 02/09/18 17:45 GMD (Rec: 02/09/18 17:45 GMD [id number]) Pain Reassessment Is this a pain reassessment? No Disposition/Present on Arrival - Present on Arrival Any Indicators Present on Arrival: No History of DVT/PE: No History of Uncontrolled Diabetes: Yes Urinary Catheter: No History of Decub. Ulcer: No History Surgical Site Infection Following: None - Disposition Have Diagnosis and Disposition been Completed?: Yes Diagnosis: Knee pain, Osteoarthritis of knee Disposition: HOME/ ROUTINE Disposition Time: 19:09 Patient Plan: Discharge Condition: GOOD Discharge Instructions (ExitCare): Osteoarthritis (DC), Knee Pain (DC) Additional Instructions: Call private doctor for follow up visit in 1-2 days. Take medication as instructed with food. Return to emergency if symptoms worsen. Call orthopedist for evaluation. Prescriptions: Famotidine [Pepcid] 40 mg PO DAILY #10 tablet Naproxen 500 mg PO BID PRN #14 tablet PRN Reason: Pain, Severe (8-10) traMADol [Ultram] 50 mg PO Q6H PRN #10 tab PRN Reason: Pain, Severe (8-10) Referrals: Manjeet Bernal DO [Primary Care Provider] - Follow up with primary Flory Braun MD [Staff Provider] - Follow up with primary Forms: [employer] (Rwandan)
[2018-02-09 19:22] VITALS: BP 138/86; PULSE 72; O2SAT 97
--- NOTE | 2018-02-10 09:22 | RAD ---
Date of service: 02/09/2018 PROCEDURE: Left Knee Radiographs. HISTORY: Pain. COMPARISON: None. FINDINGS: BONES: There is no calvarial fracture or extracranial soft tissue swelling. JOINTS: There is moderate tricompartmental degenerative osteoarthrosis with reduced joint spaces, marginal osteophytes and tibial spiking, worse in the media compartment. JOINT EFFUSION: None. OTHER FINDINGS: None. IMPRESSION: No acute fracture or dislocation. Moderate tricompartmental degenerative osteoarthrosis, worse in the medial compartment.
== END 2018-02-09 19:33 | disposition home or self-care (01) ==
LOC: ED 16:11
DX: M25.562 Pain in left knee (principal); M17.12 Unilateral primary osteoarthritis, left knee; I10 Essential (primary) hypertension; E11.9 Type 2 diabetes mellitus without complications; J44.9 Chronic obstructive pulmonary disease, unspecified; Z87.891 Personal history of nicotine dependence
CPT/HCPCS: 73562; 96372; 99284; J1885

== ENCOUNTER 2018-08-16 19:16 | Inpatient (IN) | payer MEDICARE, OTHER ==
[2018-08-16 19:23] VITALS: BMI 41.8
[2018-08-16] MEDS ORDERED: Albuterol-Ipratrop 3 mg / 0.5 (3 ml) UD IH STA ×2 (19:52→21:04)
[2018-08-16 20:11] LABS: HEMOGLOBIN 11.7 g/dL (12.0-16.0); MEAN CELL VOLUME 94.6 fl (80.0-105.0); MEAN CORPUSCULAR HEMOGLOBIN 30.2 pg (25.0-35.0); MEAN PLATELET VOLUME 9.3 fl (7.0-11.0); RBC 3.87 10^6/uL (3.5-6.1); RED CELL DISTRIBUTION WIDTH 13.8 % (11.5-14.5); WHITE BLOOD COUNT 6.6 10^3/uL (4.5-11.0)
[2018-08-16 20:17] LABS: INR 1.02; PARTIAL THROMBOPLASTIN TIME 30.5 Seconds (26.9-38.3); PROTHROMBIN TIME 11.3 SECONDS (9.4-12.5)
[2018-08-16 20:22] LABS: ALB/GLOB RATIO 0.8 (1.1-1.8); ALBUMIN 4.4 g/dL (3.0-4.8); ALT/SGPT 23 U/L (7-56); AST/SGOT 62 U/L (14-36); BLOOD UREA NITROGEN 23 mg/dL (7-21); CALCIUM 9.7 mg/dL (8.4-10.5); GFR NON-AFRICAN AMERICAN > 60
[2018-08-16 20:33] LABS: TROPONIN I < 0.01 ng/mL
[2018-08-16] MEDS ORDERED: Oxycodone/Acetaminophen 5/325 mg Tab PO STA (21:04)
--- NOTE | 2018-08-16 21:15 | ED PDOC ---
Arrival/HPI - General Chief Complaint: Shortness Of Breath Time Seen by Provider: 08/16/18 19:44 Historian: Patient - History of Present Illness Narrative History of Present Illness (Text): 08/16/18 19:45 Hayley Cooney is a 58 year old female, whose past medical history includes diabetes and COPD, who presents to the ED complaining of shortness of breath for the past few days. Patient denies any associated chest pain, fever, or chills. Patient also complaining of some headache discomfort, which she has had for the past week. Patient reports headache is only minimally relieved at times with Motrin. Patient denies any history of head trauma, nausea, vomiting, visual disturbances, or any other complaints. Symptom Onset: Gradual Symptom Course: Unchanged Activities at Onset: Light Context: Home Past Medical History - Provider Review Nursing Documentation Reviewed: Yes - Infectious Disease Hx of Infectious Diseases: None - Cardiac Hx Hypertension: Yes Hx Pacemaker: No - Pulmonary Hx Bronchitis: Yes Hx Chronic Obstructive Pulmonary Disease (COPD): Yes - Neurological Hx Paralysis: No - HEENT Hx HEENT Disorder: No - Endocrine/Metabolic Hx Diabetes Mellitus Type 2: Yes - Hematological/Oncological Hx Blood Transfusions: No Hx Blood Transfusion Reaction: No - Musculoskeletal/Rheumatological Hx Musculoskeletal Disorders: Yes Other/Comment: neuropathy. L meniscus tear - Gastrointestinal Other/Comment: lapband - Psychiatric Hx Emotional Abuse: No Hx Physical Abuse: No Hx Substance Use: No - Surgical History Other/Comment: lap band 2014 - Anesthesia Hx Anesthesia Reactions: Yes ("I GET VERY ANXIOUS BEFORE I GO UNDER & NEED TO SIT UP'") Hx Malignant Hyperthermia: No - Suicidal Assessment Feels Threatened In Home Enviroment: No Family/Social History - Physician Review Nursing Documentation Reviewed: Yes Family/Social History: Unknown Family HX Smoking Status: Former Smoker Hx Alcohol Use: No Hx Substance Use: No Allergies/Home Meds Allergies/Adverse Reactions: Allergies No Known Allergies Allergy (Verified 01/20/16 10:44) Home Medications: Home Meds Medication Instructions Recorded Confirmed Losartan/Hydrochlorothiazide 1 tab PO DAILY 01/20/16 02/09/18 [Losartan-Hctz 100-25 mg Tab] metFORMIN [glucOPHAGE] 500 mg PO BID 01/20/16 02/09/18 Albuterol HFA [Ventolin HFA 90 1 puff INH PRN PRN 12/15/17 02/09/18 mcg/actuation (8 g)] Budesonide [Pulmicort Respules] 1 puff INH DAILY 12/15/17 02/09/18 Formoterol Fumarate [Perforomist] 1 inh NEB DAILY 12/15/17 02/09/18 Tiotropium [place] Inhaler 1 inh PO DAILY 12/15/17 02/09/18 [Spiriva Inhalation Handihaler Device] Gabapentin [Neurontin] 1 tab PO BID 02/09/18 02/09/18 Review of Systems - Physician Review All systems were reviewed & negative as marked: Yes - Review of Systems Constitutional: Normal. absent: Fevers Eyes: Normal ENT: Normal Respiratory: SOB. absent: Cough Cardiovascular: Normal. absent: Chest Pain, Syncope Gastrointestinal: Normal. absent: Abdominal Pain, Diarrhea, Nausea, Vomiting Genitourinary Female: Normal. absent: Dysuria, Frequency, Hematuria, Urine Output Changes Musculoskeletal: Normal. absent: Back Pain, Neck Pain Skin: Normal. absent: Rash Neurological: Headache. absent: Dizziness Endocrine: Normal Hemo/Lymphatic: Normal Psychiatric: Normal Physical Exam Vital Signs Reviewed: Yes Vital Signs Temp Pulse Resp BP Pulse Ox 08/16/18 21:06 89 20 128/79 97 08/16/18 19:25 98 F 89 23 145/91 H 90 L Temperature: Afebrile Blood Pressure: Normal Pulse: Regular Respiratory Rate: Normal Appearance: Positive for: Well-Appearing, Non-Toxic, Comfortable Pain Distress: None Mental Status: Positive for: Alert and Oriented X 3 - Systems Exam Head: Present: Atraumatic, Normocephalic Pupils: Present: PERRL Extroacular Muscles: Present: EOMI Conjunctiva: Present: Normal Mouth: Present: Moist Mucous Membranes Neck: Present: Normal Range of Motion Respiratory/Chest: Present: Decreased Breath Sounds (Decreased breath sounds bilaterally). No: Respiratory Distress, Accessory Muscle Use Cardiovascular: Present: Regular Rate and Rhythm, Normal S1, S2. No: Murmurs Abdomen: No: Tenderness, Distention, Peritoneal Signs Back: Present: Normal Inspection Upper Extremity: Present: Normal Inspection. No: Cyanosis, Edema Lower Extremity: Present: Normal Inspection. No: Edema Neurological: Present: GCS=15, CN II-XII Intact, Speech Normal Skin: Present: Warm, Dry, Normal Color. No: Rashes Psychiatric: Present: Alert, Oriented x 3, Normal Insight, Normal Concentration Medical Decision Making ED Course and Treatment: 08/16/18 19:45 Impression: 58 year old female complaining of shortness of breath and headache discomfort Plan: -- CT Head w/o contrast -- EKG -- CXR -- Labs, cardiac enzymes -- Duoneb -- Solu-medrol -- Reassess and disposition Prior Visits: Notes and results from previous visits were reviewed. Progress Notes: Reviewed EKG, NSR at [address] bpm[address] Non-specific ST/T wave changes. 08/16/18 21:10 CXR reviewed, shows no acute processes. 08/16/18 21:15 CT Head: BRAIN No acute intraparenchymal hemorrhage. No mass lesion. No CT evidence for acute territorial infarct. No midline shift or extra-axial collections. VENTRICLES: No hydrocephalus. ORBITS: The orbits are unremarkable. SINUSES AND MASTOIDS: The paranasal sinuses and mastoid air cells are clear. BONES: No fracture. SOFT TISSUES: Unremarkable. IMPRESSION: No acute intracranial abnormality. Electronically signed on Aug 16, 2018 9:21:07 PM EST by: Hoang Gillette M.D., JOSS Certified By [facility] Fellowship Trained MRI and CT Specialist 08/16/18 22:[address] Bernal, who is aware and agrees with plan. Accepts pt in to his service. Pt will go to [facility] observation for COPD exacerbation and headache. Requests Dr. Gordon and Dr. Cotton on consult. - Lab Interpretations Lab Results: PT 11.3 SECONDS (9.4-12.5) 08/16/18 19:40 INR 1.02 08/16/18 19:40 APTT 30.5 Seconds (26.9-38.3) 08/16/18 19:40 Troponin I < 0.01 ng/mL 08/16/18 19:40 Total Bilirubin 0.3 mg/dL (0.2-1.3) 08/16/18 19:40 AST 62 U/L (14-36) H 08/16/18 19:40 ALT 23 U/L (7-56) 08/16/18 19:40 Alkaline Phosphatase 163 U/L (38-126) H 08/16/18 19:40 Total Protein 10.1 g/dL (5.8-8.3) H 08/16/18 19:40 Albumin 4.4 g/dL (3.0-4.8) 08/16/18 19:40 Globulin 5.6 gm/dL 08/16/18 19:40 Albumin/Globulin Ratio 0.8 (1.1-1.8) L 08/16/18 19:40 I have reviewed the lab results: Yes - RAD Interpretation Radiology Orders: 08/16/18 19:49 HEAD W/O CONTRAST [CT] Stat 08/16/18 19:50 CHEST PORTABLE [RAD] Stat Technician Plant And Maintenance: ED Physician, Radiologist - EKG Interpretation Interpreted by ED Physician: Yes Type: 12 lead EKG - Medication Orders Current Medication Orders: Discontinued Medications Albuterol/Ipratropium (Duoneb 3 Mg/0.5 Mg (3 Ml) Ud) 3 ml IH ONCE STA Stop: 08/16/18 19:53 Last Admin: 08/16/18 20:07 Dose: 3 ml Albuterol/Ipratropium (Duoneb 3 Mg/0.5 Mg (3 Ml) Ud) 3 ml IH ONCE STA Stop: 08/16/18 21:05 Methylprednisolone (Solu-Medrol) 125 mg IVP ONCE ONE Stop: 08/16/18 19:53 Last Admin: 08/16/18 20:07 Dose: 125 mg IVP Administration Document 08/16/18 20:07 (Rec: 08/16/18 20:07 [id number]) Charges for Administration # of IVP Administrations 1 Oxycodone/Acetaminophen (Percocet 5/325 Mg Tab) 1 tab PO STAT STA Stop: 08/16/18 21:05 - Scribe Statement The provider has reviewed the documentation as recorded by the Scribe Marce Alberto All medical record entries made by the Scribe were at my direction and personally dictated by me. I have reviewed the chart and agree that the record accurately reflects my personal performance of the history, physical exam, medical decision making, and the department course for this patient. I have also personally directed, reviewed, and agree with the discharge instructions and disposition. Disposition/Present on Arrival - Present on Arrival Any Indicators Present on Arrival: No History of DVT/PE: No History of Uncontrolled Diabetes: Yes Urinary Catheter: No History of Decub. Ulcer: No History Surgical Site Infection Following: None - Disposition Have Diagnosis and Disposition been Completed?: Yes Diagnosis: COPD exacerbation Disposition: HOSPITALIZED Disposition Time: 22:40 Patient Problems: Current Active Problems Problem Status Onset COPD exacerbation Acute Condition: STABLE
[2018-08-17] MEDS: Albuterol-Ipratrop 3 mg / 0.5 (3 ml) UD IH PRN ×2 (01:11→06:58)
--- NOTE | 2018-08-17 08:15 | CT ---
Date of service: 08/16/2018 PROCEDURE: CT HEAD WITHOUT CONTRAST. HISTORY: headache COMPARISON: None available. TECHNIQUE: Axial computed tomography images were obtained through the head/brain without intravenous contrast. Radiation dose: Total exam DLP = 953.26 mGy-cm. This CT exam was performed using one or more of the following dose reduction techniques: Automated exposure control, adjustment of the mA and/or kV according to patient size, and/or use of iterative reconstruction technique. FINDINGS: HEMORRHAGE: No intracranial hemorrhage. BRAIN: There are mild chronic microangiopathic changes. There is no mass, mass effect or abnormal extra-axial fluid collection. There is no territorial infarction. The midline sagittal structures are normal. VENTRICLES: The ventricles are normal in size, shape and configuration. CALVARIUM: There is no calvarial fracture or extracranial soft tissue swelling. PARANASAL SINUSES: Predominantly clear. MASTOID AIR CELLS: Predominantly clear. OTHER FINDINGS: None. IMPRESSION: No acute intracranial abnormality. A preliminary report was provided by [employer].
--- NOTE | 2018-08-17 09:59 | RAD ---
Date of service: 08/16/2018 HISTORY: sob COMPARISON: 05/13/2017. FINDINGS: LUNGS: The lungs are well inflated and clear. PLEURA: No pleural effusions or pneumothorax. CARDIOVASCULAR: There is mild cardiomegaly. No aortic atherosclerotic calcifications present. OSSEOUS STRUCTURES: Within normal limits for the patient's age. VISUALIZED UPPER ABDOMEN: Normal. OTHER FINDINGS: None. IMPRESSION: No active pulmonary disease.
--- NOTE | 2018-08-17 10:24 | CARD ---
APPROVED REPORT Date of service: 08/16/2018 EKG Measurement Heart [id number] <Conclusion> Normal sinus rhythm Nonspecific ST abnormality Abnormal ECG
[2018-08-17] MEDS ORDERED: Non Formulary Medication (Losartan/Hydrochlorothiazide [Losartan-Hctz 100-25 Mg Tab] 1 TAB PO SCH (10:30)
[2018-08-17] MEDS: MethylPREDNISolone 40 mg Vial IVP SCH ×2 (11:00→21:26)
[2018-08-17] MEDS: Albuterol-Ipratrop 3 mg / 0.5 (3 ml) UD IH SCH ×2 (13:42→19:19)
[2018-08-17] MEDS ORDERED: Iohexol 350 MG/100 ML VIAL ONE (14:51)
--- NOTE | 2018-08-17 15:06 | PN ---
DATE: 08/17/2018 SUBJECTIVE: I saw her this morning in bed. She is doing a little bit better, still a little bit short of breath, occasional wheeze coughing up a little bit of phlegm. Little bit weaker, but she slept a little bit on off the nebulizer treatments are helping her. MEDICATIONS: She will be on IV Solu-Medrol. She will be on back on her blood pressure medications, she is on Neurontin, also the nebulizer treatments around the clock. She will also be on oxygen. She has CPAP and a diet. OBJECTIVE: GENERAL: She is doing a little bit better than last night, but still tight, she tells me. VITAL SIGNS: Temperature 98.7, 77 pulse, 150/90 blood pressure 20, respiratory rate 95% on 2 liters, it is better than 90 in the emergency room. HEENT: Head is atraumatic, normocephalic. Headache is a little bit less this morning. HEART: Regular rate. LUNGS: Decreased breath sounds bilaterally, occasional wheeze, changes with cough, decreased breath sounds bilaterally, just poor inspiration at this time. ABDOMEN: Soft, obese, nontender. Positive bowel sounds. EXTREMITIES: No edema. LABORATORY DATA: She has a 149 sugar, the labs are pending this morning. IMPRESSION AND PLAN: Await for pulmonary and neurology to see her. She will be on DuoNebs [id number] medications of diabetes and blood pressure. She has Solu-Medrol and she is here for acute COPD. Hopefully starting to improve. Manjeet Bernal DO
--- NOTE | 2018-08-17 16:38 | CT ---
Date of service: 08/17/2018 PROCEDURE: CT Chest with contrast HISTORY: followup for pericardial cyst COMPARISON: Plain radiographs from 08/16/[address] chest without contrast from 05/13/2017 TECHNIQUE: Contiguous axial images were obtained through the chest with intravenous contrast enhancement. Sagittal and coronal reconstructions were performed. IV contrast: 100 mL Omnipaque 350 Radiation dose: Total exam DLP = 783.45 mGy-cm. This CT exam was performed using one or more of the following dose reduction techniques: Automated exposure control, adjustment of the mA and/or kV according to patient size, and/or use of iterative reconstruction technique. FINDINGS: LUNGS: The lungs are well inflated. There is paraseptal emphysema in the lung apices, worse on the right. There is also minimal paraseptal emphysema in peripheral right middle lobe and lateral right lower lobe. There is linear subsegmental atelectasis in the lung bases. No nodules, consolidation or mass. There are no endobronchial lesions. MEDIASTINUM: Mild aneurysmal dilatation of the ascending aorta. No large aneurysm or dissection. There is mild cardiomegaly. Main pulmonary artery unremarkable. No vascular congestion. No lymphadenopathy. There are minimal aortic atherosclerotic calcifications present. There is redemonstration of 1.7 x 4.9 x 1.5 cm stable multilobular cystic lesion in the right anterior cardiophrenic angle. PLEURA: No pleural fluid. No pneumothorax. BONES: No fracture. No destructive lesion. There is diffuse bone demineralization and multilevel degenerative changes in the spine. UPPER ABDOMEN: There are multiple gallstones. The adrenal glands are normal. Status post lap band procedure. OTHER FINDINGS: None. IMPRESSION: 1. Little interval change in 1.7 x 4.9 x 1.5 cm multilobular anterior pericardial cyst. 2. Stable aneurysmal dilatation of the ascending aorta. 3. Paraseptal emphysema, worse in the right apex. 4. Cholelithiasis.
[2018-08-17] MEDS: Enoxaparin 40 mg Syringe SC SCH (17:54)
--- NOTE | 2018-08-17 19:20 | CON ---
DATE OF CONSULTATION: 08/17/2018 REFERRING PHYSICIAN: Manjeet Bernal DO REASON FOR CONSULTATION: Chronic obstructive lung disease, sleep apnea syndrome. HISTORY OF PRESENT ILLNESS: This is a 58-year-old female with past medical history significant for chronic obstructive lung disease, diabetes, sleep apnea syndrome, obesity, came into emergency room with headache, also some cough and shortness of breath. According to her, she has a known sleep apnea syndrome. Her CPAP was not working right. Presently feels better. No nausea, no vomiting, no diarrhea. No leg pain or leg swelling. PAST MEDICAL HISTORY: Sleep apnea syndrome, diabetes, chronic obstructive lung disease, hypertension, diabetes, has a history of meniscus tear, history of lap band in the past. FAMILY HISTORY: No significant cardiopulmonary disease reported. SOCIAL HISTORY: Stopped smoking many years ago. Denies any alcohol use. MEDICATIONS: She is on Cozaar 100 mg daily, DuoNeb every 6 hours, metformin 500 mg twice a day, hydrochlorothiazide 25 mg daily, gabapentin 100 mg twice a day, Norvasc 5 mg daily, Pepcid 40 mg daily, Solu-Medrol 40 mg every 12 hours, Ultram 50 mg every 8 hours p.r.n. ALLERGIES: NONE KNOWN. REVIEW OF SYSTEMS: History of headache present. There is no headache, no rhinitis. Mild cough, short of breath. No chest pain, nausea, vomiting, diarrhea, leg pain or leg swelling. PHYSICAL EXAMINATION: GENERAL: No acute distress. VITAL SIGNS: Temp is 98, heart rate is 77, respiratory rate is 20, blood pressure 154/82, pulse of 95% on 2 liter nasal cannula. HEENT: Moist mucous membranes. No crowded airway. Mallampati score is 4. NECK: Supple. No JVD. LUNGS: Have prolonged expiratory phase with few rhonchi. HEART: S1 and S2. ABDOMEN: Soft, nontender, no organomegaly. EXTREMITIES: There is no edema. NEUROLOGIC: Awake and alert. Follows simple commands. LABORATORY DATA: Hemoglobin 11.7, hematocrit 36.6, WBC 6.6, platelets 468,000. INR 1.02. PTT 31. Sodium 140, potassium 3.6, chloride 100, bicarbonate 34, BUN 23, creatinine 0.8, glucose 103, calcium 9.7. Total bili 0.3, AST 62, ALT 23, alk phos is 163. LDH 511. Troponin less than 0.01. Albumin 4.4. Chest x-ray is unremarkable. CAT scan of the head is done, which shows no acute intracranial abnormality. IMPRESSION AND PLAN: Chronic obstructive lung disease, sleep apnea syndrome, morbid obesity, diabetes, pericardial cyst, history of radiculopathy. Pulmonary point of view, continue IV and inhaled bronchodilator. May start Zithromax 500 mg daily. Will need outpatient repeat sleep study and may need to use CPAP. Gastric prophylaxis, DVT prophylaxis, also has seasonal allergies. We will start her on Singulair 10 mg h.s., Flonase 1 spray each nostril twice a day. Thank you and we will follow with you. Emile Hernández MD
[2018-08-17] MEDS: Fluticasone Nasal 50 mcg/Spray NS SCH (21:24)
--- NOTE | 2018-08-17 21:52 | HP ---
DATE OF EXAM: 08/17/2018 HISTORY OF PRESENT ILLNESS: I have known Hayley for a while now. She comes to the emergency room with a few days of shortness of breath, I saw her last night in the emergency room when she started her workup by 8:30 at night. I discussed this with the ER doctor at that time. She is a 58-year-old female, who comes in acutely short of breath. She has been short of breath for 3 days, getting worse, failed outpatient treatment with nebulizers and medications. PAST MEDICAL/SURGICAL HISTORY: She has diabetes and COPD in the past. She tells me she is taking the medication. She also has diabetes. She had a neuropathy, left meniscus tear, she had lap band surgery, gets very anxious. FAMILY HISTORY: Unknown. SOCIAL HISTORY: Former smoker. No alcohol. No drugs. ALLERGIES: NO KNOWN DRUG ALLERGIES. MEDICATIONS: She takes losartan, hydrochlorothiazide, metformin, Ventolin, Pulmicort, , Spiriva and Neurontin and she was taking her breathing treatments which did not get her better and it got steadily worse. REVIEW OF SYSTEMS: When I saw her last night in bed, she had shortness of breath with oxygen. No acute vision changes or hearing changes. She was short of breath was wheezing. No cough. No chest pain or palpitations. No abdominal pain, nausea, vomiting, constipation, or diarrhea. No urinary tract problems. No back or neck pain or rashes. She did have a headache. Not anxious. PHYSICAL EXAMINATION: VITAL SIGNS: Temperature 98, pulse 89, respiratory rate 22, blood pressure 145/91, O2 sat 90%. GENERAL: She came into the emergency room. She was a little bit uncomfortable, little bit stressed, well-appearing. Alert and oriented x3. HEENT: Head is atraumatic and normocephalic. Extraocular muscles intact. Pupils reactive to light and accommodation. Throat is moist. NECK: Supple. Thyroid midline. No palpable appreciable lymphadenopathy. HEART: Regular rate. Normal S1 and S2. LUNGS: With decreased breath sounds with wheezing bilaterally, was not getting air into her lungs, the oxygen was helping when I saw her in the ER last night. ABDOMEN: Soft and nontender. Positive bowel sounds. Mildly obese. EXTREMITIES: No edema. NEUROLOGIC: GCS is 15. Cranial nerves II through XII grossly intact. Speech is normal. SKIN: Warm and dry. No apparent rashes or ulcers. LABORATORY DATA: White count 6.6, hemoglobin 11.7, hematocrit 36.6 and platelets 468. INR 1.02. Sodium 140, potassium 3.6, BUN 22, creatinine 0.8, GFR greater than 60, sugar 149, and calcium 9.7. Total bili is 0.3, AST is 62, ALT is 23, alk phos is 163, and lactate dehydrogenase is 511. Troponin I is less than 0.01. Total protein is 10.1. Albumin is 4.4. Chest x-ray showed no active disease and no acute intracranial abnormality on the CAT scan of the head. IMPRESSION AND PLAN: She was given IV Solu-Medrol in the ER, multiple DuoNebs that could not clear her so we admitted her. She is here for acute exacerbation of chronic obstructive pulmonary disease. She will have a consult with Pulmonary and Neurology for the headache. Manjeet Bernal DO [facility]
[2018-08-18] MEDS: Albuterol-Ipratrop 3 mg / 0.5 (3 ml) UD IH SCH ×4 (01:11→20:37)
[2018-08-18 07:28] LABS: HEMOGLOBIN 11.3 g/dL (12.0-16.0); MEAN CELL VOLUME 94.2 fl (80.0-105.0); MEAN CORPUSCULAR HEMOGLOBIN 29.6 pg (25.0-35.0); MEAN CORPUSCULAR HGB CONC 31.4 g/dl (31.0-37.0); MEAN PLATELET VOLUME 9.4 fl (7.0-11.0); RBC 3.82 10^6/uL (3.5-6.1); RED CELL DISTRIBUTION WIDTH 13.9 % (11.5-14.5); WHITE BLOOD COUNT 12.2 10^3/uL (4.5-11.0)
[2018-08-18 08:21] LABS: ALB/GLOB RATIO 0.8 (1.1-1.8); ALBUMIN 4.4 g/dL (3.0-4.8); ALT/SGPT 17 U/L (7-56); AST/SGOT 40 U/L (14-36); CALCIUM 9.7 mg/dL (8.4-10.5); GFR NON-AFRICAN AMERICAN > 60
[2018-08-18 08:35] LABS: BLOOD UREA NITROGEN 25 mg/dL (7-21)
[2018-08-18] MEDS: Enoxaparin 40 mg Syringe SC SCH (09:37)
[2018-08-18] MEDS: Fluticasone Nasal 50 mcg/Spray NS SCH ×2 (09:37→21:54)
[2018-08-18] MEDS: MethylPREDNISolone 40 mg Vial IVP SCH ×2 (09:37→21:53)
--- NOTE | 2018-08-18 11:16 | CP.PCM.APN ---
Subjective - Date & Time of Evaluation Date of Evaluation: 08/18/18 Time of Evaluation: 08:45 - Subjective Subjective: Pt seen and examined at bedside. She is no acute distress and states breathing is improved. However, states short of breath when walking to the bathroom. Objective - Vital Signs/Intake and Output Vital Signs (last 24 hours): Temp Pulse Resp BP Pulse Ox 98.8 F 72 20 142/77 95 08/18/18 06:00 08/18/18 09:36 08/18/18 06:00 08/18/18 09:36 08/18/18 06:00 Intake and Output: 08/18/18 08/18/18 06:59 18:59 Intake Total 620 Balance 620 - Medications Medications: Current Medications Albuterol/Ipratropium (Duoneb 3 Mg/0.5 Mg (3 Ml) Ud) 3 ml IH [id number] [facility] Last Admin: 08/18/18 07:10 Dose: 3 ml Amlodipine Besylate (Norvasc) 5 mg PO DAILY [facility] Last Admin: 08/18/18 09:36 Dose: 5 mg Azithromycin (Zithromax) 500 mg PO DAILY [facility]; Protocol Last Admin: 08/18/18 09:35 Dose: 500 mg Enoxaparin Sodium (Lovenox) 40 mg SC DAILY [facility]; Protocol Last Admin: 08/18/18 09:37 Dose: 40 mg Famotidine (Pepcid) 40 mg PO DAILY [facility] Last Admin: 08/18/18 09:35 Dose: 40 mg Fluticasone Propionate (Flonase) 1 actuation NS Q12 [facility] Last Admin: 08/18/18 09:37 Dose: 1 spr Gabapentin (Neurontin) 100 mg PO BID [facility]; Protocol Last Admin: 08/18/18 09:35 Dose: 100 mg Hydrochlorothiazide (Hydrodiuril) 25 mg PO DAILY [facility] Last Admin: 08/18/18 09:36 Dose: 25 mg Losartan Potassium (Cozaar) 100 mg PO DAILY [facility] Last Admin: 08/18/18 09:36 Dose: 100 mg Metformin HCl (Glucophage) 500 mg PO BID [facility] Last Admin: 08/18/18 09:36 Dose: 500 mg Methylprednisolone (Solu-Medrol) 40 mg IVP Q12 [facility] Last Admin: 08/18/18 09:37 Dose: 40 mg Montelukast Sodium (Singulair) 10 mg PO HS [facility] Last Admin: 08/17/18 21:26 Dose: 10 mg Tramadol HCl (Ultram) 50 mg PO Q8 PRN PRN Reason: Pain, moderate (4-7) Last Admin: 08/17/18 11:18 Dose: 50 mg - Labs Labs: 08/18/18 07:00 08/18/18 07:00 PT 11.3 SECONDS (9.4-12.5) 08/16/18 19:40 INR 1.02 08/16/18 19:40 APTT 30.5 Seconds (26.9-38.3) 08/16/18 19:40 - Constitutional Appears: No Acute Distress - Head Exam Head Exam: ATRAUMATIC - Respiratory Exam Respiratory Exam: Decreased Breath Sounds - Cardiovascular Exam Cardiovascular Exam: REGULAR RHYTHM, +S1, +S2 - GI/Abdominal Exam GI & Abdominal Exam: Soft, Normal Bowel Sounds - Rectal Exam Rectal Exam: Deferred - Neurological Exam Neurological Exam: Alert, Awake, Oriented x3 Assessment and Plan - Assessment and Plan (Free Text) Assessment: Pt is a 58 y.o. female with pmhx of DM, COPD and HTN who presented in ED for shortness of breath and headache. States that the CPAP at home is nonfunctional. Plan: On Solumedrol 40q12h On nebulizer treatments Pulm and Neuro on consult Meds per AUG Will continue to follow
--- NOTE | 2018-08-18 12:54 | PN ---
DATE: 08/18/2018 SUBJECTIVE: I saw her this morning resting in bed. Oxygen is on. She is telling me that she could not walk to the bathroom, which is 4 feet away and back to the bed without being quite short of breath. She was hoping she could not have bath. She also talked to the bar pilot to on the IV Solu-Medrol little longer. I was hoping to discharge her, but it looks like she is not ready yet. MEDICATIONS: She is on Cozaar, DuoNebs, Flonase, Glucophage, Lovenox, Neurontin, HydroDIURIL, Norvasc, Pepcid, Singulair, Solu-Medrol 40 IV every 12 hours, we will continue that, tramadol and Zithromax. PHYSICAL EXAMINATION VITAL SIGNS: She has a 98.4 temperature, 85 pulse, 150/82 blood pressure, 18 respiratory rate, 97% O2 sat on room air. HEENT: Head is atraumatic and normocephalic. HEART: Regular rate. LUNGS: Decreased breath sounds, occasional wheeze, changes with cough which is tight. ABDOMEN: Soft, morbidly obese. EXTREMITIES: Trace edema if any. LABORATORY DATA: She has a 12.2 white count from the steroids, 11.3 hemoglobin, 36 hematocrit with 46 platelets. She has a 139 sodium, potassium 8.8, BUN 25, creatinine 0.8, GFR is greater than 60, sugar is 143, calcium is 9.7, total bili is 0.2. AST is 40, ALT is 17, alk phos 121, total protein is 9.7. We will continue as per Pulmonary, continue aggressive treatment and care. Hopefully, in the next day or two, we would be able to discharge her she has COPD exacerbation. Manjeet Bernal DO [facility]
[2018-08-18] MEDS ORDERED: Apap-Butalbital-Caffeine 325-50-40mg Tab PO PRN (13:49)
--- NOTE | 2018-08-18 15:30 | CON ---
DATE: 08/18/2018 NEUROLOGY CONSULTATION CHIEF COMPLAINT: Headache. HISTORY OF PRESENT ILLNESS: This is a 58-year-old woman, history of COPD, type 2 diabetes mellitus, sleep apnea syndrome came in Emergency room for headache along with cough and shortness of breath. She said her CPAP was working at night. Currently she is not longer having headache since she got some p.r.n. steroids for underlying COPD exacerbation. She never got these headaches before. She does not get chronic headaches at all. Since she got the Flonase she feel much better and headaches went down. Currently she is siting at the edge of the bed in no acute distress. PAST MEDICAL HISTORY: As above. FAMILY HISTORY: Noncontributory. SOCIAL HISTORY: No illicit drug use, smoking, or EtOH abuse. REVIEW OF SYSTEMS: A 14-point review of systems is negative except as per HPI. ALLERGIES: NO KNOWN DRUG ALLERGIES. MEDICATIONS: Reviewed by nurse's reconciliation sheet. PHYSICAL EXAMINATION: VITAL SIGNS: Temperature is 98, pulse rate of 97, blood pressure 148/80, respiratory rate of 18. HEENT: Atraumatic and normocephalic. PERRLA. Extraocular muscles are intact. Mallampati score is 4. NECK: Supple, no JVD and no adenopathy noted. . HEART: S1 and S2. Normal rate and rhythm. No murmurs, rubs or gallops. ABDOMEN: Soft, nontender, and nondistended. Bowel sounds are present. EXTREMITIES: No clubbing, no cyanosis. Peripheral pulses 2+ felt bilaterally. NEUROLOGICAL: The patient is alert and oriented to person, place, month and year. Speech is fluent without any errors. Cranial nerves II through XII are intact. Motor exam; moves all extremities equally. Toes are downgoing bilaterally. Sensory exam; light touch, pinprick up to the calves bilaterally, and decreased vibration of the toes. DTRs are 2+ throughout one in both in knees and ankles. Coordination; [id number] is intact. No dysmetria noted. Gait is deferred for now. IMPRESSION: Headache is secondary to attention-based headache from underlying chronic obstructive pulmonary disease exacerbation. She is feeling much better since she has had steroids and Flonase which are reduced her headache. At this time we will recommend Fioricet one tab every 6 hours for acute onset of headache. Continue with pulmonary management underlying chronic obstructive pulmonary disease exacerbation. 2. We will recommend continuous positive airway pressure and weight reduction. Pop Cotton MD
--- NOTE | 2018-08-18 16:19 | PN ---
DATE: 08/18/2018 PULMONARY PROGRESS NOTE REFERRING PHYSICIAN: Dr. Bernal. SUBJECTIVE: The patient is sitting in armchair in room. No acute distress. No overnight events reported. Reports feeling better this morning or today. No headache, rhinitis, chest pain, abdominal pain, nausea, vomiting, diarrhea, leg pain, or leg swelling reported. The patient does report at home she uses CPAP at 12 cm with nasal pillow, but her CPAP machine is not working properly from home. Wore CPAP machine last night in facility. Reports feeling that she needs more pressure as her pressure is higher at home. OBJECTIVE: VITAL SIGNS: Blood pressure 142/77, pulse 72, temperature 98.8, oxygen saturation 95% on nasal cannula. GENERAL: No acute distress. HEENT: Moist mucous membranes. Mallampati score of 4. Crowded airway. NECK: Supple. No JVD. LUNGS: Few scattered rhonchi. CARDIOVASCULAR: S1 and S2. ABDOMEN: Soft and nontender. No distension. No organomegaly. EXTREMITIES: No bilateral lower extremity edema. NEUROLOGIC: Awake, alert and verbal. Follows commands. MEDICATIONS: Reviewed. Fioricet 1 tab every 4 hours p.r.n., DuoNeb 3 mL inhalation every 6 hours, Norvasc 5 mg daily, Zithromax 500 mg daily, Lovenox 40 mg daily, Pepcid 40 mg daily, Flonase nasal spray every 12 hours, Neurontin 100 mg twice a day, hydrochlorothiazide 25 mg daily, Cozaar 100 mg daily, metformin 500 mg twice a day, Solu-Medrol 40 mg every 12 hours, Singulair 10 mg at bedtime, tramadol 50 mg every 8 hours p.r.n. LABORATORY DATA: WBC 12.2, RBC 3.8. hemoglobin 11.3, platelets 46. Sodium 139. potassium 3.8. chloride 99, carbon dioxide 31, anion gap 12, BUN 25, creatinine 0.8, GFR greater than 60, POC glucose 118, random glucose 143. Calcium 9.7, total bilirubin 0.2. AST 40, ALT 17, alkaline phosphatase 101, total protein 9.7, albumin 4.4, globulin 5.4, albumin-globulin ratio 0.8. Chest CT shows little integral change in 1.7 x 4.9 x 1.5 cm multilobular anterior pericardial cyst stable, aneurysmal dilatation of the stenting aorta, paraseptal emphysema worse on the right apex, cholelithiasis. IMPRESSION AND PLAN: Chronic obstructive lung disease, sleep apnea syndrome, morbid obesity, diabetes, history of radiculopathy, pericardial cyst. Pulmonary point of view continue intravenous and inhaled bronchodilators. Continue antibiotic therapy. Gastric prophylaxis, deep venous thrombosis prophylaxis. We will increase continuous positive airway pressures at 10 cm tonight and we will use nasal mask. We will decrease Solu-Medrol to 20 mg every 12 hours. Continue Singulair, Flonase. The patient will need split sleep study as an outpatient, CPAP machine is currently not working at home. The patient will need full pulmonary function test as an outpatient. This patient was seen and examined with Dr. Hernández. Discussed assessment and plan as described above. The patient is seen and examined with Tod Crenshaw, nurse practitioner. Discussed assessment and plan as described above. Thank you for this consult. We will follow with you. Tod Crenshaw APN Emile Hernández MD
--- NOTE | 2018-08-19 01:14 | CP.PCM.PN ---
Subjective - Date & Time of Evaluation Date of Evaluation: 08/19/18 Time of Evaluation: 01:13 - Subjective Subjective: TBD II Pepcid order upset stomach. received needle in belly - lovnox. Objective - Vital Signs/Intake and Output Vital Signs (last 24 hours): Temp Pulse Resp BP Pulse Ox 97.5 F L 82 18 156/94 H 98 08/18/18 22:28 08/18/18 22:28 08/18/18 22:28 08/18/18 22:28 08/18/18 22:28 Intake and Output: 08/18/18 08/19/18 18:59 06:59 Intake Total 620 Balance 620 - Medications Medications: Current Medications Acetaminophen/Butalbital/Caffeine (Fioricet) 1 tab PO Q4H PRN PRN Reason: Headache Last Admin: 08/18/18 18:20 Dose: 1 tab Albuterol/Ipratropium (Duoneb 3 Mg/0.5 Mg (3 Ml) Ud) 3 ml IH [id number] [facility] Last Admin: 08/18/18 20:37 Dose: 3 ml Amlodipine Besylate (Norvasc) 5 mg PO DAILY [facility] Last Admin: 08/18/18 09:36 Dose: 5 mg Azithromycin (Zithromax) 500 mg PO DAILY [facility]; Protocol Last Admin: 08/18/18 09:35 Dose: 500 mg Enoxaparin Sodium (Lovenox) 40 mg SC DAILY [facility]; Protocol Last Admin: 08/18/18 09:37 Dose: 40 mg Famotidine (Pepcid) 40 mg PO DAILY [facility] Last Admin: 08/18/18 09:35 Dose: 40 mg Fluticasone Propionate (Flonase) 1 actuation NS Q12 [facility] Last Admin: 08/18/18 21:54 Dose: 1 spr Gabapentin (Neurontin) 100 mg PO BID [facility]; Protocol Last Admin: 08/18/18 18:00 Dose: 100 mg Hydrochlorothiazide (Hydrodiuril) 25 mg PO DAILY [facility] Last Admin: 08/18/18 09:36 Dose: 25 mg Losartan Potassium (Cozaar) 100 mg PO DAILY [facility] Last Admin: 08/18/18 09:36 Dose: 100 mg Metformin HCl (Glucophage) 500 mg PO BID [facility] Last Admin: 08/18/18 18:00 Dose: 500 mg Methylprednisolone (Solu-Medrol) 20 mg IVP Q12 [facility] Last Admin: 08/18/18 21:53 Dose: 20 mg Montelukast Sodium (Singulair) 10 mg PO HS [facility] Last Admin: 08/18/18 21:51 Dose: 10 mg Tramadol HCl (Ultram) 50 mg PO Q8 PRN PRN Reason: Pain, moderate (4-7) Last Admin: 08/17/18 11:18 Dose: 50 mg - Labs Labs: 08/18/18 07:00 08/18/18 07:00 PT 11.3 SECONDS (9.4-12.5) 08/16/18 19:40 INR 1.02 08/16/18 19:40 APTT 30.5 Seconds (26.9-38.3) 08/16/18 19:40
[2018-08-19] MEDS: Albuterol-Ipratrop 3 mg / 0.5 (3 ml) UD IH SCH ×4 (01:23→20:10)
[2018-08-19 07:57] VITALS: RESP 20
[2018-08-19] MEDS: Enoxaparin 40 mg Syringe SC SCH (10:15)
[2018-08-19] MEDS: MethylPREDNISolone 40 mg Vial IVP SCH ×2 (10:15→21:26)
[2018-08-19] MEDS: Fluticasone Nasal 50 mcg/Spray NS SCH ×2 (10:25→21:25)
--- NOTE | 2018-08-19 12:41 | PN ---
DATE: 08/19/2018 PULMONARY PROGRESS NOTE REFERRING PHYSICIAN: Manjeet Bernal DO SUBJECTIVE: The patient was seen sitting up at bedside. No acute distress. Reports feeling well this morning. No headache, rhinitis, cough, shortness of breath, chest pain, abdominal pain, nausea, vomiting, diarrhea, leg pain, leg swelling reported. OBJECTIVE: VITAL SIGNS: Blood pressure 143/85, pulse 98, temperature 97.6, oxygen saturation 98% on room air. GENERAL: No acute distress. HEENT: Moist mucous membranes. Crowded airway. Mallampati score of 4. NECK: Supple. No JVD. LUNGS: Fair airflow bilaterally. CARDIOVASCULAR: S1 and S2. ABDOMEN: Soft and nontender. No distention. No organomegaly. EXTREMITIES: No bilateral lower extremity edema. NEUROLOGIC: Awake, alert and verbal. Follows commands. MEDICATIONS: Reviewed. Fioricet 1 tab every 4 hours p.r.n., DuoNeb 3 mL inhalation every 6 hours, Norvasc 5 mg daily, Zithromax 500 mg daily, Lovenox 40 mg daily, Pepcid 40 mg daily, Flonase nasal spray every 12 hours, Neurontin 100 mg twice a day, hydrochlorothiazide 25 mg daily, Cozaar 100 mg daily, metformin 500 mg twice a day, Solu-Medrol 20 mg every 12 hours, Singulair 10 mg at bedtime, tramadol 50 mg every 8 hours p.r.n. LABORATORY DATA: Reviewed. No new labs since yesterday. IMPRESSION AND PLAN: Chronic obstructive lung disease, sleep apnea syndrome, morbid obesity, diabetes, history of radiculopathy, pericardial cyst. Pulmonary point of view, continue inhaled bronchodilators. Gastric prophylaxis, deep venous thrombosis prophylaxis, and antibiotic therapy. Continue continuous positive airway pressure use at bedtime. Sleep apnea precaution, head of bed elevated at 45 degrees. The patient reports that her continuous positive airway pressure machine from home is not working. We will followup and work with this patient as outpatient. The patient may need split or home sleep study as outpatient in order to get new machine at home. Upon discharge, Solu-Medrol may be discontinued and the patient can be placed on tapering dose of prednisone. This patient will also need full pulmonary function test as outpatient. This patient was seen and examined with Dr. Hernández. Discussed assessment and plan as described above. The patient was seen and examined with Tod Crenshaw, nurse practitioner. Discussed assessment and plan as described above. Thank you for this consult. We will follow with you. Tod Crenshaw APN Emile Hernández MD
--- NOTE | 2018-08-19 18:52 | PN ---
DATE: 08/19/2018 SUBJECTIVE: I was hopefully trying to discharge her today, but she was told by the compliance spec to stay until tomorrow to finish out another day of Solu-Medrol. She is also still a little puffy, little short of breath, so we have given the Solu-Medrol for 24 more hours. MEDICATIONS: She is also on DuoNebs, Fioricet, Flonase, Glucophage, HydroDIURIL, Lovenox, Neurontin, Norvasc, Pepcid, Singulair, Solu-Medrol, Ultram, and Zithromax. She is definitely improving, but she is scared to leave and pulmonary says one more day of Solu-Medrol. OBJECTIVE: VITAL SIGNS: 97.6 temperature, 87 pulse, 127/83 blood pressure, 20 respiratory rate, and 90% O2 sat on oxygen. HEENT: Head; atraumatic and normocephalic. HEART: Regular rate. LUNGS: Clear to auscultation with decreased breath sounds, occasional wheeze, changes with cough, better than the before. ABDOMEN: Soft and morbidly obese. EXTREMITIES: No edema. ASSESSMENT AND PLAN: She is going to be hopefully discharge tomorrow that is my plan. She has acute chronic obstructive pulmonary disease and she is improving. Manjeet Bernla DO [facility]PITALPresley
[2018-08-20] MEDS: Albuterol-Ipratrop 3 mg / 0.5 (3 ml) UD IH SCH ×2 (03:05→07:10)
[2018-08-20 07:56] VITALS: TEMP 97.8; O2SAT 97
[2018-08-20] MEDS: Fluticasone Nasal 50 mcg/Spray NS SCH (09:26)
[2018-08-20] MEDS: MethylPREDNISolone 40 mg Vial IVP SCH (09:26)
[2018-08-20] MEDS: Enoxaparin 40 mg Syringe SC SCH (09:26)
[2018-08-20 09:30] VITALS: BP 114/63; PULSE 82
--- NOTE | 2018-08-20 17:53 | DS ---
HISTORY OF PRESENT ILLNESS: She is doing much better today. She is breathing much better today. She is ready to go home, I agree with her. She is on Cozaar, albuterol, Flonase, Glucophage, HydroDIURIL, Lovenox, which we will stop, Neurontin, Norvasc, Pepcid, Singulair, Solu-Medrol will be changed to prednisone 30 for 3 days, 23 days 10 for 3 days and stop, Ultram as needed, and Zithromax 250 for 3 more days. She is breathing better, feeling better, walking better, improved. PHYSICAL EXAMINATION: VITAL SIGNS: A 97.8 temperature, 68 pulse, 161/90 blood pressure, 20 respiratory rate, and 97% O2 sat on room air. HEENT: Head; atraumatic, normocephalic. HEART: Regular rate. LUNGS: Decreased breath sounds but clear. No wheezes. No rhonchi. No rales, which is great. ASSESSMENT AND PLAN: I am happy with that she is doing better. She knows she will be getting discharged today. She knows she is going to have the pharmacy call me to get her medications. The new medications she will be on is prednisone, Zithromax, Flonase, and TobraDex for the eye infection. She will be continued with the same home medications. I am going to see her in the office on Saturday. Today is Saturday. She understands that she can call me if anything changes. She was here for acute exacerbation of chronic obstructive pulmonary disease and she did improve quickly. Manjeet Bernal DO
== END 2018-08-20 11:17 | disposition home or self-care (01) | DRG 191 ==
LOC: ED 19:16 → ERH 22:45 → 5RNO 23:53 → OBSVTOIN 08-18 08:47
PROVIDERS: ADMIT Family Medicine; ATTEND Family Medicine
PROC: 5A09357 Assistance with Respiratory Ventilation, Less than 24 Consecutive Hours, Continuous Positive Airway Pressure (ICD-10-PCS; principal; 2018-08-17)
DX: J44.1 Chronic obstructive pulmonary disease with (acute) exacerbation (principal); Z68.41 Body mass index [BMI] 40.0-44.9, adult; E11.40 Type 2 diabetes mellitus with diabetic neuropathy, unspecified; G47.30 Sleep apnea, unspecified; E66.01 Morbid (severe) obesity due to excess calories; I10 Essential (primary) hypertension; M54.10 Radiculopathy, site unspecified; R51 Headache; Z98.84 Bariatric surgery status; Z79.84 Long term (current) use of oral hypoglycemic drugs; Z79.899 Other long term (current) drug therapy; Z87.891 Personal history of nicotine dependence